=== PATIENT | female | born 1990 | race Caucasian/White ===

== ENCOUNTER 2018-05-25 17:03 | Emergency (ER) | payer MEDICAID, SELFPAY ==
[2018-05-25 17:04] VITALS: BP 115/72; PULSE 76; RESP 16; TEMP 36.9; O2SAT 97; BMI 26.6
--- NOTE | 2018-05-25 17:13 | RAD_ITS ---
STUDY: X-RAY - RIGHT FOOT CLINICAL: Female, 27 years old. Patient stepped on nail. TECHNIQUE: 3 view(s) of the foot. COMPARISON: None. FINDINGS: Normal talus, calcaneus, and tarsal bones. Normal visualized subtalar, talonavicular, calcaneocuboid, tarsal and tarsometatarsal articulations. Normal metatarsi. Normal metatarsophalangeal joint of the great toe. Normal tibial and fibular sesamoid bones. Normal interphalangeal joint of the great toe. Normal phalanges of the great toe. Normal second through fifth metatarsophalangeal joints. Normal interphalangeal joints and phalanges of the lesser toes. There is no demonstrated radio-opaque foreign body. There is soft tissue swelling. There is no demonstrated fracture. RAD/Foot min 3 Views IMPRESSION: Soft tissue swelling. No fracture or foreign body seen. Electronically Signed: García Hanna MD at 17:47 EDT , Service support ,
--- NOTE | 2018-05-25 18:29 | ED.VISSUMM ---
- ER Visit Summary Date of Service: 05/25/18 Chief Complaint: Puncture wound History of Present Illness: The patient is a 27 F puncture wound to my she stepped on a nail yesterday. Physical Examination: There was normal exam, there is a puncture wound forefoot. Slight swelling but no ecchymoses or erythema. Test Results: [] Emergency Department Course and Treatment: Patient will be treated with tetanus, antibiotics will be given Disposition: Discharge stable condition Impression: Puncture wound This note was generated with [employer] dictation software. It may contain incorrect words, spelling, and punctuation that were not noted in review of the chart prior to signing ED Disposition - Plan for ED Patient: Disposition: Home or Assisted Living Chief Complaint: Lower Extremity Injury Instructions: ED Wound Puncture Foot Prescriptions: Cephalexin [Keflex] 500 mg PO Q6 #20 cap Cephalexin [Keflex] 500 mg PO 4X/DAY 5 Days #20 capsule Referrals: Devyn Cavanaugh DO [Primary Care Provider] - 2 Days
--- NOTE | 2018-05-25 18:37 | ED.DCSUM_ITS ---
- ER Visit Summary Date of Service: 05/25/18 Chief Complaint: Puncture wound History of Present Illness: The patient is a 27 F puncture wound to my she stepped on a nail yesterday. Physical Examination: There was normal exam, there is a puncture wound forefoot. Slight swelling but no ecchymoses or erythema. Test Results: [] Emergency Department Course and Treatment: Patient will be treated with tetanus , antibiotics will be given Disposition: Discharge stable condition Impression: Puncture wound This note was generated with [employer] dictation software. It may contain incorrect words, spelling, and punctuation that were not noted in review of the chart prior to signing ED Disposition - Plan for ED Patient: Disposition: Home or Assisted Living Chief Complaint: Lower Extremity Injury Instructions: ED Wound Puncture Foot Prescriptions: Cephalexin [Keflex] 500 mg PO Q6 #20 cap Cephalexin [Keflex] 500 mg PO 4X/DAY 5 Days #20 capsule Referrals: Devyn Cavanaugh DO [Primary Care Provider] - 2 Days
[2018-05-25] MEDS: Diphth,Pertuss(Acell),Tet Vac 0.5 ML Vial IM (18:54)
== END 2018-05-25 19:10 | disposition home or self-care (01) ==
LOC: ED 18:39
PROVIDERS: Emergency Provider Emergency Medicine; Family Provider Student in an Organized Health Care Education/Training Program; PCP Student in an Organized Health Care Education/Training Program
DX: S91.331A Puncture wound without foreign body, right foot, initial encounter (principal); W45.0XXA Nail entering through skin, initial encounter; W22.8XXA Striking against or struck by other objects, initial encounter; Y93.9 Activity, unspecified; Y92.9 Unspecified place or not applicable; Y99.9 Unspecified external cause status; Z23 Encounter for immunization; K21.9 Gastro-esophageal reflux disease without esophagitis
CPT/HCPCS: 73630; 90471; 90715; 99282

== ENCOUNTER 2018-08-23 09:41 | Emergency (ER) | payer BC, MEDICAID, SELFPAY ==
[2018-08-23 09:42] VITALS: BP 130/78; PULSE 68; RESP 14; TEMP 36.8; O2SAT 99; BMI 27.6
[2018-08-23] MEDS: Ketorolac 30 MG/ML Syringe IV (10:18)
[2018-08-23] MEDS: Ondansetron 4 MG/2 ML Vial IV (10:18)
[2018-08-23] MEDS: 0.9% Normal Saline 1,000 ML 1000 ML IV (10:18)
[2018-08-23 10:28] LABS: Color, Urine Yellow (Yellow); Glucose, Dipstick Normal (Normal); Ketone-Dipstick Negative (Negative); Leukocyte Esterase-Dipstick Negative /ul (Negative); Mucous, Urine 0 SEEN /hpf (<or=2+); Nitrite-Dipstick Negative (Negative); Occult Blood-Urine Negative /ul (Negative); Protein-Dipstick Negative (Negative); Red Blood Cells-Urine 0 SEEN /hpf (0-5); Urine Bilirubin Dipstick Negative (Negative); Urine Clarity Sl. Cloudy (Clear); Urine Urobilinogen Normal (Normal); White Blood Cells 0 SEEN /hpf (0-5)
[2018-08-23 10:31] LABS: Absolute Lymphocyte Count 1.23 X10^3/ul (0.83-4.51); Absolute Neutrophil Count 2.4 X10^3/uL (2.0-7.7); Basophil# 0.01 X10^3/uL; Basophil% 0.2 % (0-1); Eosinophil# 0.08 X10^3/uL; Hematocrit 42.6 % (37-47); Hemoglobin 13.7 g/dl (12.0-15.0); Lymphocyte # 1.23 X10^3/ul (4.0); Lymphocyte % 30.4 % (19-41); Mean Corp Hgb Conc 32.2 g/gl (32-36); Mean Corpuscular Volume 90.3 fL (81-99); Mean Platelet Vol. 9.3 fl (6.2-12.0); Monocyte% 7.4 % (0-10); Neutrophil # 2.42 X10^3/uL (2.7-7.7); Platelet Count 278 K/mm3 (150-450); RBC Distribution Width CV 12.5 % (11.6-14.6); Red Blood Count 4.72 M/mm3 (4.2-5.4)
[2018-08-23 10:33] LABS: POSITIVE COUNT NO; POSITIVE DIFFERENTIAL NO; POSITIVE MORPHOLOGY NO
[2018-08-23 10:34] LABS: Bacteria 1+ /hpf (None Seen); Squamous Epithelial Cells - UA 0-5 SEEN /hpf (5-10)
[2018-08-23 10:46] LABS: Anion Gap 10 (5-15); BUN 20 mg/dL (7-18); BUN/Creat Ratio 21.1 RATIO (10-20); Calcium,Total 9.2 mg/dL (8.5-10.1); Chloride 104 mmol/L (98-107); Creatinine, Serum 0.95 mg/dL (0.55-1.02); EST Glomerular Filtration Rate 74 mL/min (>60); Est Glom Filt Rate - Afr Amer 89 mL/min (>60); Estimated Creatinine Clearance 77.92 ml/min; Glucose 89 mg/dL (74-106); Sodium Level 141 mmol/L (136-145)
--- NOTE | 2018-08-23 10:57 | ED.VISSUMM ---
- ER Visit Summary Date of Service: 08/23/18 Chief Complaint: Back pain History of Present Illness: The patient is a [address] Cavanaugh. She reports that she has lower back pain that began 4 days ago and is gradually gotten worse. She describes the pain as sharp. Is 10 out of 10 severity. Is worsened with bending or twisting. Is relieved by nothing. She denies any radiation to her legs. No numbness, tingling, or weakness in her legs. No problems with her bowels or her bladder. No groin numbness. 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 States that she has myalgias in her arms and her legs that began yesterday. She denies any fever or chills. She does however report that she has had night sweats. She states that she has a little cough. Is nonproductive. No chest pain or trouble breathing. She denies any abdominal pain. She has had nausea without vomiting. She had 2 episodes of diarrhea today. No blood in her stools or black tarry stools. Does report that she has a headache that stated 10 severity. It is an aching pain on the top of her head. She has not had a headache like this previously. Physical Examination: She denies any trauma. Vitals: Stable. Afebrile. General: A&O x 3. NAD. Cardiovascular exam: Regular rate and rhythm, no murmur, rub or gallop. Respiratory exam: Clear to auscultation bilaterally. No wheezes or stridor. Abdominal exam: Soft, nontender, nondistended, normal bowel sounds. No peritoneal signs. Back: Diffuse moderate tenderness to palpation over the lumbar spine and the paraspinous musculature in the lumbar region. No point tenderness. Negative straight leg bilaterally. 5/5 DF, PF, EHL bilaterally. Normal sensation to light touch throughout. Extremity: No clubbing, cyanosis, or edema. Test Results: CBC is remarkable for a white count of 4. Chem-7 is more for BUN of 20. UA is negative. test is negative. Emergency Department Course and Treatment: Patient had an IV placed. She given Toradol and Zofran IV. She is resting comfortably. I did discuss with her the possibility of viral meningitis. She refused a lumbar puncture. Treatment Plan: Patient will be discharged instructions to follow-up with Dr. Cavanaugh in 3-5 days if not improving. Symptomatic care. Push fluids. Alternate Tylenol and ibuprofen. Return to the emergency department for any worsening symptoms. Disposition: To home in improved and stable condition. Impression: 1. Back pain. 2. Viral syndrome. This note was generated with [employer] dictation software. It may contain incorrect words, spelling, and punctuation that were not noted in review of the chart prior to signing ED Disposition - Plan for ED Patient: Chief Complaint: General Illness Instructions: ED Neck Back Pain General, ED Viral Syndrome Prescriptions: Naproxen [Naprosyn] 500 mg PO BID #14 tablet Referrals: Devyn Cavanaugh DO [Primary Care Provider] - 3-5 Days if not improving
[2018-08-23 11:00] LABS: Pregnancy, Serum, hCG Quali. NEGATIVE Negative (0-9 Nonpreg)
[2018-08-23 11:45] VITALS: BP 111/75; PULSE 60; RESP 14; O2SAT 100
== END 2018-08-23 11:56 | disposition home or self-care (01) ==
PROVIDERS: Emergency Provider Emergency Medicine; Family Provider Student in an Organized Health Care Education/Training Program; PCP Student in an Organized Health Care Education/Training Program
DX: M54.9 Dorsalgia, unspecified (principal); B34.9 Viral infection, unspecified; R19.7 Diarrhea, unspecified; R05 Cough; R51 Headache; Z20.811 Contact with and (suspected) exposure to meningococcus
CPT/HCPCS: 80048; 81001; 84703; 85025; 96361; 96374; 96375; 99283; J7030; J2405

== ENCOUNTER 2018-10-25 14:11 | Emergency (ER) | payer BC, MEDICAID, SELFPAY ==
[2018-10-25 14:12] VITALS: BP 109/72; PULSE 66; RESP 12; TEMP 36.7; O2SAT 97; BMI 27.6
--- NOTE | 2018-10-25 14:37 | RAD_ITS ---
STUDY: X-RAY CHEST REASON FOR EXAM: Female, 28 years old. Intermittent chest pain and dizziness. TECHNIQUE: PA and lateral views of the chest. COMPARISON: None. FINDINGS: EKG electrodes are seen. The lungs are clear and expanded. There is no demonstrated pleural abnormality. Normal size heart. Normal mediastinum and mitch. Normal visualized pulmonary arteries. Normal visualized aortic arch and descending thoracic aorta. Normal visualized thoracic spine. Normal visualized ribs, clavicles, and shoulders. There is no demonstrated abnormality of the visualized soft tissue structures of the upper abdomen. RAD/Chest PA and Lateral IMPRESSION: Normal x-ray examination of the chest. Electronically Signed: Trever Segal MD at 15:06 EST Tel [phone], Service support ,
--- NOTE | 2018-10-25 14:37 | EKG12_ITS ---
Test Reason : CP Blood Pressure : / mmHG Vent. Rate : 061 BPM Atrial Rate : 061 BPM P-R Int : 134 ms QRS Dur : 090 ms QT Int : 414 ms P-R-T Axes : 021 013 027 degrees QTc Int : 416 ms Normal sinus rhythm with sinus arrhythmia Low voltage QRS (limb leads) Confirmed by YVONNE VELASCO, KAIT ([id number]), purchasing expeditor LOLA PATTERSON ([id number]) on 10/27/2018 4:18:46 PM Referred By: Confirmed By:KAIT RUSSELL MD
--- NOTE | 2018-10-25 14:39 | ED.VISSUMM ---
- ER Visit Summary Date of Service: 10/25/18 Chief Complaint: Chest pain History of Present Illness: The patient is a 28 F prior leg fracture with dayana that had to be removed. Patient complaining of 2-week history of intermittent chest pain and dizziness. States that the pressure at times is sharp. Intermittent. Worse with standing. Better supine. No shortness of breath. No leg pain or swelling. No history of DVT or PE. No family history of clotting disorder or cardiac disease at a young age. Patient had no significant recent travel, surgery or immobilization. No hemoptysis. No calf pain or swelling. No melena or vaginal bleeding. Denies any fever or cough. Currently she feels fine sitting down. Physical Examination: Well-appearing young female. Vital signs are stable and afebrile. Pulse ox 97% on room air no hypoxia. HEENT exam unremarkable. Neck nontender no lymphadenopathy. Lungs clear to auscultation bilaterally. Heart regular rhythm no murmur chest wall nontender. Abdomen soft nontender. Normal bowel sounds no peritoneal signs. Patient is moving all 4 extremities. Calves are nontender without edema or cords. Neurologically she is awake and alert with no focal motor deficits. Test Results: Patient will undergo cardiac workup. She has no risk factors for DVT or PE. CBC normal. White count of 4. Normal hemoglobin. Chemistries normal. Troponin normal. D-dimer normal. EKG sinus rhythm rate of 61 no acute signs of DE or ischemia nor dysrhythmia. Chest x-ray normal cardiac silhouette and mediastinum lung meza are unremarkable. Read both by myself and the radiologist. Emergency Department Course and Treatment: Repeat exam patient is doing well at 1535. Treatment Plan: Discharge home follow-up with primary care physician. Disposition: Discharge Impression: Acute atypical chest pain of uncertain etiology This note was generated with [employer] dictation software. It may contain incorrect words, spelling, and punctuation that were not noted in review of the chart prior to signing ED Disposition - Plan for ED Patient: Chief Complaint: Chest Other Referrals: Devyn Cavanaugh DO [Primary Care Provider] -
[2018-10-25 14:49] LABS: Absolute Lymphocyte Count 1.54 X10^3/ul (0.83-4.51); Absolute Neutrophil Count 2.9 X10^3/uL (2.0-7.7); Basophil# 0.01 X10^3/uL; Basophil% 0.2 % (0-1); Eosinophil# 0.03 X10^3/uL; Eosinophils% 0.6 % (0-5); Hematocrit 40.1 % (37-47); Lymphocyte # 1.54 X10^3/ul (4.0); Lymphocyte % 32.4 % (19-41); Mean Corp Hgb Conc 32.4 g/gl (32-36); Mean Corpuscular Hgb 28.4 pg (27.0-32.0); Mean Corpuscular Volume 87.7 fL (81-99); Mean Platelet Vol. 9.2 fl (6.2-12.0); Monocyte# 0.28 X10^3/uL; Monocyte% 5.9 % (0-10); Neutrophil # 2.89 X10^3/uL (2.7-7.7); Neutrophil % 60.9 % (47-70); Platelet Count 277 K/mm3 (150-450); RBC Distribution Width SD 38.3 fl (35.1-43.9); Red Blood Count 4.57 M/mm3 (4.2-5.4); White Blood Count 4.8 K/mm3 (4.4-11.0)
[2018-10-25 14:50] LABS: POSITIVE COUNT NO; POSITIVE DIFFERENTIAL NO; POSITIVE MORPHOLOGY NO
[2018-10-25 15:00] LABS: Anion Gap 5 (5-15); BUN 13 mg/dL (7-18); BUN/Creat Ratio 14.3 RATIO (10-20); Calcium,Total 8.9 mg/dL (8.5-10.1); Chloride 105 mmol/L (98-107); Creatinine, Serum 0.91 mg/dL (0.55-1.02); EST Glomerular Filtration Rate 77 mL/min (>60); Est Glom Filt Rate - Afr Amer 93 mL/min (>60); Estimated Creatinine Clearance 81.34 ml/min; Glucose 101 mg/dL (74-106); Potassium 3.7 mmol/L (3.5-5.1); Sodium Level 138 mmol/L (136-145)
[2018-10-25 15:10] VITALS: O2SAT 98
[2018-10-25 15:38] LABS: D-Dimer Quantitative (DVT/PE) < 0.27 FEU/ug/m (0.27-0.49)
--- NOTE | 2018-10-25 15:46 | ED.DEP ---
ED Disposition - Plan for ED Patient: Disposition: Home or Assisted Living Chief Complaint: Chest Other Instructions: ED Chest Pain Atypical Unkn Cause Referrals: Devyn Cavanaugh DO [Primary Care Provider] - 3-5 Days if not improving Additional Instructions: All your lab work, EKG and chest x-ray were normal today. If not improving follow-up your primary care physician. Motrin for pain.
[2018-10-25 16:01] VITALS: BP 110/70; PULSE 60; RESP 16; O2SAT 98
--- OUTSIDE RECORDS SUMMARY | 2018-12-07 13:15 | XMS RPT_ITS ---
:1990 Author Organization OHIP Care Team Providers Name Role Phone DEVYN LUIS Attending Unavailable DEVYN LUIS Referring Unavailable DEVYN LUIS Referring Unavailable Devyn Luis Primary Care Unavailable Ricky Blanton Attending Unavailable Devyn Luis Primary Care Unavailable Rishabh Rondon Attending Unavailable Devyn Luis Primary Care Unavailable Winston Chairez Attending Unavailable PROBLEMS PROBLEMS DATE TYPE CONDITION / CODE ATTENDING STATUS SOURCE 2018 Active Encounter for NA Active [facility] general adult [facility] medical Repository examination without abnormal findings / Z00.00(ICD-10) 2018 Active Vitamin D NA Active [facility] deficiency, [facility] unspecified / Repository E55.9(ICD-10) PROCEDURES PROCEDURES No Procedure Records FoundRESULTS RESULTS 12 LEAD ELECTROCARDIOGRAM Observed: 10/29/2018 Status: F Source: [place] 9:27 AM [facility] REPOSITORY [facility] Cardiovascular Services [address] [place] [address] 12 Lead EKG 10/25/18 1420 MR#: [id number] Acct: [id number] Name: ANGELIKA SHAHID I Rep #: [id number] : 1990 28 From: Ricky Russell MD Attending Dr: Status: [facility] ER Ordering Dr: Winston Chairez MD Date: 10/25/18 Location: ED Sex: F C Admitted: Test Reason : CP Blood Pressure : / mmHG Vent. Rate : 061 BPM Atrial Rate : 061 BPM P-R Int : 134 ms QRS Dur : 090 ms QT Int : 414 ms P-R-T Axes : 021 013 027 degrees QTc Int : 416 ms Normal sinus rhythm with sinus arrhythmia Low voltage QRS (limb leads) Confirmed by YVONNE VELASCO, RICKY ([id number]), scientific publications editor LOLA PATTERSON ([id number]) on 10/27/2018 4:18:46 PM Referred By: Confirmed By:RICKY RUSSELL MD 10/27/18 1618 Date Ricky Russell MD CC: Winston Chairez MD; Devyn Gilliland DO Signed DISCHARGE INSTRUCTION Observed: 10/25/2018 Status: F Source: [place] 5:03 PM [facility] REPOSITORY [facility] Medical Records Department [address] [place] [id number] Discharge Instruction 10/25/18 1546 MR#: [id number] Acct: [id number] Name: ANGELIKA SHAHID I Rep #: [id number] : 1990 28 From: Winston Chairez MD PCP: Devyn Gilliland DO Status: DEP ER ED Disposition - Plan for ED Patient: Disposition: Home or Assisted Living Chief Complaint: Chest Other Instructions: ED Chest Pain Atypical Unkn Cause Referrals: Devyn Luis DO [Primary Care Provider] - 3-5 Days if not improving Additional Instructions: All your lab work, EKG and chest x-ray were normal today. If not improving follow-up your primary care physician. Motrin for pain. What to do if you have Problems For any increased pain, shortness of breath, bleeding, nausea or vomiting, chest pain, or any unexpected problems, contact your Primary Care Provider. Call [email or web address] ([phone]) or report to the closest Emergency Room. Call 911 if necessary. 10/25/18 1703 <Electronically signed by Winston Chairez MD> Date Winston Chairez MD Cosigner Signature (If Indicated): Date CC: Devyn Gilliland DO EMERGENCY DEPARTMENT Observed: 10/25/2018 Status: F Source: [place] SUMMARY 5:03 PM [facility] REPOSITORY [facility] Medical Records Department [address] [place] [address] Emergency Department Summary 10/25/18 1439 MR#: [id number] Acct: [id number] Name: ANGELIKA SHAHID I Rep #: [id number] : 1990 28 From: Winston Chairez MD PCP: Devyn Gilliland DO Status: DEP ER - ER Visit Summary Date of Service: 10/25/18 Chief Complaint: Chest pain History of Present Illness: The patient is a 28 F prior leg fracture with miky that had to be removed. Patient complaining of 2-week history of intermittent chest pain and dizziness. States that the pressure at times is sharp. Intermittent. Worse with standing. Better supine. No shortness of breath. No leg pain or swelling. No history of DVT or PE. No family history of clotting disorder or cardiac disease at a young age. Patient had no significant recent travel, surgery or immobilization. No hemoptysis. No calf pain or swelling. No melena or vaginal bleeding. Denies any fever or cough. Currently she feels fine sitting down. Physical Examination: Well-appearing young female. Vital signs are stable and afebrile. Pulse ox 97% on room air no hypoxia. HEENT exam unremarkable. Neck nontender no lymphadenopathy. Lungs clear to auscultation bilaterally. Heart regular rhythm no murmur chest wall nontender. Abdomen soft nontender. Normal bowel sounds no peritoneal signs. Patient is moving all 4 extremities. Calves are nontender without edema or cords. Neurologically she is awake and alert with no focal motor deficits. Test Results: Patient will undergo cardiac workup. She has no risk factors for DVT or PE. CBC normal. White count of 4. Normal hemoglobin. Chemistries normal. Troponin normal. D-dimer normal. EKG sinus rhythm rate of 61 no acute signs of AK or ischemia nor dysrhythmia. Chest x-ray normal cardiac silhouette and mediastinum lung meza are unremarkable. Read both by myself and the radiologist. Emergency Department Course and Treatment: Repeat exam patient is doing well at 1535. Treatment Plan: Discharge home follow-up with primary care physician. Disposition: Discharge Impression: Acute atypical chest pain of uncertain etiology This note was generated with [employer] dictation software. It may contain incorrect words, spelling, and punctuation that were not noted in review of the chart prior to signing ED Disposition - Plan for ED Patient: Chief Complaint: Chest Other Referrals: Devyn Luis, [Primary Care Provider] - What to do if you have Problems For any increased pain, shortness of breath, bleeding, nausea or vomiting, chest pain, or any unexpected problems, contact your Primary Care Provider. Call [facility] ([phone]) or report to the closest Emergency Room. Call 911 if necessary. 10/25/18 1703 <Electronically signed by Winston Chairez MD> Date Winston Chairez MD Cosigner Signature (If Indicated): Date CC: Devyn Gilliland DO D-DIMER QUANTITATIVE Collected: 10/25/2018 Status: F Source: [place] (DVT/PE) 2:54 PM [facility] REPOSITORY TYPE CODE TESTS RESULT OUT OF RANGE REFERENCE UNITS LAB L300.8000 0.27-0.49 FEU/ug/m Low D-DIMER < 0.27 QUANT Result Comment: NORMAL D-Dimer level (<0.50) indicates no DVT or PE. Performed By: #### L300.8000 #### [facility] [address] [place], [address] CHEST PA AND LATERAL Observed: 10/25/2018 Status: F Source: [place] 2:38 PM [facility] REPOSITORY [facility] Imaging Services [address] [place] [address] Chest PA and Lateral MR#: [id number] Acct: [id number] Name: ANGELIKA SHAHID I Rep #: [id number] : 1990 F 28 From: Trever Segal MD PCP: Devyn Gilliland DO Status: REG ER Study: Chest PA and Lateral Date of Exam: 10/25/18 Exam# [id number] Ordering Dr: Winston Chairez MD STUDY: X-RAY CHEST REASON FOR EXAM: Female, 28 years old. Intermittent chest pain and dizziness. TECHNIQUE: PA and lateral views of the chest. COMPARISON: None. FINDINGS: EKG electrodes are seen. The lungs are clear and expanded. There is no demonstrated pleural abnormality. Normal size heart. Normal mediastinum and mitch. Normal visualized pulmonary arteries. Normal visualized aortic arch and descending thoracic aorta. Normal visualized thoracic spine. Normal visualized ribs, clavicles, and shoulders. There is no demonstrated abnormality of the visualized soft tissue structures of the upper abdomen. RAD/Chest PA and Lateral IMPRESSION: Normal x-ray examination of the chest. Electronically Signed: Trever Segal MD at 15:06 EST Tel [phone], Service support , CC: Winston Chairez MD; Devyn Gilliland DO [employer] Systems Adminstrator: Signed CBC W/DIFF, AUTOMATED Collected: 10/25/2018 Status: F Source: [place] 2:26 PM [facility] REPOSITORY TYPE CODE TESTS RESULT OUT OF RANGE REFERENCE UNITS LAB L100.1000 4.4-11.0 K/mm3 Normal WBC 4.8 LAB L100.1200 4.2-5.4 M/mm3 Normal RBC 4.57 LAB L100.1300 12.0-15.0 g/dl Normal HGB 13.0 LAB L100.1400 37-47 % Normal HCT 40.1 LAB L100.1500 81-99 fL Normal MCV 87.7 LAB L100.1600 27.0-32.0 pg Normal MCH 28.4 LAB L100.1700 32-36 g/gl Normal MCHC 32.4 LAB L100.1810 11.6-14.6 % Normal RDW CV 12.0 LAB L100.1820 35.1-43.9 fl Normal RDW SD 38.3 LAB L100.1900 150-450 K/mm3 Normal PLT 277 LAB L100.2000 6.2-12.0 fl Normal MPV 9.2 LAB L100.2100 47-70 % Normal NEUT% 60.9 LAB L100.2200 19-41 % Normal LY% 32.4 LAB L100.2300 0-10 % Normal MONO% 5.9 LAB L100.2400 0-5 % Normal EO% 0.6 LAB L100.2500 0-1 % Normal BASO% 0.2 LAB L100.2550 0.0-0.9 % Normal IM GRAN % 0.000 Result Comment: IG% - Immature Granulocytes (promyelocytes, myelocytes and metamyelocytes) > 1% indicates that a LEFT SHIFT is Present. LAB L100.2620 2.0-7.7 X10 3/uL Normal Absolute Neut 2.9 LAB L100.2720 0.83-4.51 X10 3/ul Normal Absolute Lymph 1.54 Performed By: #### L100.0100 #### [facility] [address] [place], [address] BASIC METABOLIC Collected: 10/25/2018 Status: F Source: [place] PROFILE (BMP) 2:26 PM [facility] REPOSITORY TYPE CODE TESTS RESULT OUT OF RANGE REFERENCE UNITS LAB L501.0100 74-106 mg/dL Normal GLU 101 Result Comment: Fasting Glucose result from 100 to 125 mg/dL suggests IMPAIRED HOMEOSTASIS per A.D.A. criteria. Please note revised GLUCOSE reference range effective 2018. LAB L501.1000 7-18 mg/dL Normal BUN 13 LAB L501.1100 0.55-1.02 mg/dL Normal CREAT,SERUM 0.91 Result Comment: The validity of the calculated GFR AND GFRAA in patients over 70 years has not been determined. Clinical correlation is essential. LAB L501.1110 >60 mL/min Normal EST GFR 77 Result Comment: Non- GFR Calc LAB L501.1115 >60 mL/min Normal EST GFR - AA 93 Result Comment: GFR Calc LAB L501.1255 ml/min Normal Estimated CRCL 81.34 LAB L501.1300 10-20 RATIO Normal BUN/CRE 14.3 LAB L501.2200 8.5-10 mg/dL Normal .1 CA 8.9 LAB L501.5300 136-14 mmol/L Normal 5 NA 138 LAB L501.5600 3.5-5. mmol/L Normal 1 K 3.7 LAB L501.5900 98-107 mmol/L Normal CL 105 LAB L501.6100 21.0-3 mmol/L Normal 2.0 CO2 28.0 LAB L501.6200 5-15 Normal GAP 5 Performed By: #### L500.2500, L501.4010 #### [facility] [address] [place], [address] TROPONIN-I Collected: 10/25/2018 Status: F Source: [place] 2:26 PM [facility] REPOSITORY TYPE CODE TESTS RESULT OUT OF RANGE REFERENCE UNITS LAB L501.4010 <0.045 ng/mL Normal < 0.015 TROPONIN-I Result Comment: TROPONIN-I EXPECTED VALUES <0.045 Negative 0.045 - 0.590 Consistent with Cardiac Damage > OR = 0.600 Critical Value Not every elevated troponin is indicative of AK. These values should be used with clinical judgement in examining the patient's clinical picture for diagnosis. To establish a diagnosis of AK versus myocardial injury, there must be a demonstrated rise and/or fall in the troponin values, in addition to ischemic symptoms, EKG changes, new regional wall motion abnormality, and/or angiographical evidence. PLEASE NOTE: REFERENCE RANGES EDITED 18 Performed By: #### L500.2500, L501.4010 #### [facility] [address] [place], [address] PROGRESS Observed: 10/19/2018 Status: COMPLETED Source: [place] 1:06 PM [facility] REPOSITORY HNO ID: [id number] Author: Yomi Gomez Service: (none) Author Type: Nurse Practitioner Type: Progress Notes Filed: 10/19/2018 1:27 PM Note Text: Subjective HPI HPI Angelika Shahid is a 28 year old female who presents today for CC of sinus pressure. This started 3 weeks ago. Has tried otc medication. Symptoms are worsened by nothing. Risk factors chronic/intermittent. Denies possibility of being . Nonsmoker. .Patient presents with: head congestion and pressure and bilateral ear pain: x 3 weeks PAST MEDICAL HISTORY Diagnosis Date - Endometriosis 2016 stage 3 - Other and unspecified ovarian cyst Ovarian cyst - PMH - PAST MEDICAL HISTORY OF ELEVATED PTT PAST SURGICAL HISTORY Procedure Laterality Date - DELIVERY ONLY 10/2010 - INSERTION OF IUD 02/05/2011 spontaneously expelled 04/21/11 - IUD REMOVAL ([employer])_*FL 02/16/09 mirena - PAST SURGICAL HISTORY OF 06/29/2007 RIGHT LEG MIKY INSERTION - PAST SURGICAL HISTORY OF 03/2010 WISDOM TEETH - PAST SURGICAL HISTORY OF removal miky right leg. - REMOVAL OF TONSILS,<12 Y/O Tonsillectomy ALLERGIES Soap [Other]; Food Extracts; Morphine; Garvin -This section reviewed with patient, no changes MEDICATIONS fluticasone (FLONASE) 50 mcg/actuation nasal spray Use 2 Sprays in each nostril once daily. Rinse mouth after use. cetirizine-pseudoephedrine (ZYRTEC-D) 5-120 mg per tablet Take 1 tablet by mouth twice daily. -This section reviewed with patient, no changes FAMILY HISTORY Problem Relation Age of Onset - Breast Cancer Maternal Aunt - Breast Cancer Mother - Heart Father 55 mild AK - Heart Maternal Uncle - Alcohol/Drug Maternal Grandfather ETOH - Alcohol/Drug Paternal Grandfather ETOH - Alcohol/Drug Paternal Grandmother ETOH - Diabetes Maternal Aunt - Diabetes Maternal Aunt - COPD Father - Stroke Paternal Uncle - Hypertension Father - Multiple Sclerosis Maternal Aunt Social History Substance Use Topics - Smoking status: Former Smoker Years: 1.00 Types: Cigarettes Quit date: 05/05/2006 - Smokeless tobacco: Never Used - Alcohol use No Review of Systems Constitutional: Negative for chills, fever and weight loss. HENT: Positive for congestion and sore throat. Negative for ear pain and nosebleeds. Respiratory: Positive for cough. Negative for shortness of breath and wheezing. Musculoskeletal: Negative for neck pain. Objective Blood pressure 110/74, pulse 86, temperature 36.4 ?C (97.5 ?F), temperature source Tympanic, resp. rate 18, weight 74.5 kg (164 lb 3.2 oz), SpO2 98 %. Physical Exam Constitutional: She is oriented to person, place, and time and well-developed, well-nourished, and in no distress. Non-toxic appearance. She does not have a sickly appearance. No distress. HENT: Head: Normocephalic and atraumatic. Right Ear: Hearing, external ear and ear canal normal. Tympanic membrane is bulging (clear fluid behind). Tympanic membrane is not perforated and not erythematous. Left Ear: Hearing, external ear and ear canal normal. Tympanic membrane is bulging (clear fluid behind). Tympanic membrane is not perforated and not erythematous. Nose: Right sinus exhibits maxillary sinus tenderness and frontal sinus tenderness. Left sinus exhibits maxillary sinus tenderness and frontal sinus tenderness. Mouth/Throat: Uvula is midline, oropharynx is clear and moist and mucous membranes are normal. Eyes: Pupils are equal, round, and reactive to light. Conjunctivae and lids are normal. Right eye exhibits no discharge. Left eye exhibits no discharge. No scleral icterus. Neck: Trachea normal and normal range of motion. Neck supple. Cardiovascular: Normal rate, regular rhythm and normal heart sounds. Pulmonary/Chest: Effort normal and breath sounds normal. Lymphadenopathy: She has no cervical adenopathy. Neurological: She is alert and oriented to person, place, and time. Skin: No rash noted. She is not diaphoretic. ASSESSMENT/PLAN: 1. Bacterial sinusitis - ICD9: 473.9, 041.9, ICD10: J32.9, B96.89 - Will begin treatment with Doxycline - Supportive care with plenty of fluids, rest, and analgesia prn. - Follow up in 3-5 days if symptoms persist or worsen. -augmentin has failed few times, will start with doxy - DOXYCYCLINE MONOHYDRATE 100 MG TABLET Prescription instructions reviewed with patient as applicable. Patient advised if symptoms do not improve or if symptoms worsen sooner, to contact the office for further evaluation by their primary care physician. Potential red flag symptoms discussed with the patient. Reviewed appropriate action plan to take if red flag symptoms occur. Patient agreeable to treatment plan. Yomi Gomez APRN.CNP CNOV Observed: 10/19/2018 Status: COMPLETED Source: [place] 1:00 PM [facility] REPOSITORY Office Visit (W[facility]) ANGELIKA SHAHID I ([id number]) 1990 F Date Time Provider Department 10/19/18 1:00 PM YOMI GOMEZ (CLIF) [facility] During your visit today, we recorded the following information about you: Temperature Pulse Respiration Blood pressure 97.5 degrees 86/minute 18/minute 110/74 Weight 74.5 kg Yomi Gomez APRN.CNP 10/19/2018 1:27 PM Signed Subjective HPI HPI Angelika Brittaney Zehra is a 28 year old female who presents today for CC of sinus pressure. This started 3 weeks ago. Has tried otc medication. Symptoms are worsened by nothing. Risk factors chronic/intermittent. Denies possibility of being . Nonsmoker. .Patient presents with: head congestion and pressure and bilateral ear pain: x 3 weeks PAST MEDICAL HISTORY Diagnosis Date - Endometriosis 2016 stage 3 - Other and unspecified ovarian cyst Ovarian cyst - PMH - PAST MEDICAL HISTORY OF ELEVATED PTT PAST SURGICAL HISTORY Procedure Laterality Date - DELIVERY ONLY 10/2010 - INSERTION OF IUD 02/05/2011 spontaneously expelled 04/21/11 - IUD REMOVAL ([employer] DE[employer])_*FL 02/16/09 mirena - PAST SURGICAL HISTORY OF 06/29/2007 RIGHT LEG MIKY INSERTION - PAST SURGICAL HISTORY OF 03/2010 WISDOM TEETH - PAST SURGICAL HISTORY OF removal miky right leg. - REMOVAL OF TONSILS,<12 Y/O Tonsillectomy ALLERGIES Soap [Other]; Food Extracts; Morphine; Garvin -This section reviewed with patient, no changes MEDICATIONS fluticasone (FLONASE) 50 mcg/actuation nasal spray Use 2 Sprays in each nostril once daily. Rinse mouth after use. cetirizine-pseudoephedrine (ZYRTEC-D) 5-120 mg per tablet Take 1 tablet by mouth twice daily. -This section reviewed with patient, no changes FAMILY HISTORY Problem Relation Age of Onset - Breast Cancer Maternal Aunt - Breast Cancer Mother - Heart Father 55 mild AK - Heart Maternal Uncle - Alcohol/Drug Maternal Grandfather ETOH - Alcohol/Drug Paternal Grandfather ETOH - Alcohol/Drug Paternal Grandmother ETOH - Diabetes Maternal Aunt - Diabetes Maternal Aunt - COPD Father - Stroke Paternal Uncle - Hypertension Father - Multiple Sclerosis Maternal Aunt Social History Substance Use Topics - Smoking status: Former Smoker Years: 1.00 Types: Cigarettes Quit date: 05/05/2006 - Smokeless tobacco: Never Used - Alcohol use No Review of Systems Constitutional: Negative for chills, fever and weight loss. HENT: Positive for congestion and sore throat. Negative for ear pain and nosebleeds. Respiratory: Positive for cough. Negative for shortness of breath and wheezing. Musculoskeletal: Negative for neck pain. Objective Blood pressure 110/74, pulse 86, temperature 36.4 ?C (97.5 ?F), temperature source Tympanic, resp. rate 18, weight 74.5 kg (164 lb 3.2 oz), SpO2 98 %. Physical Exam Constitutional: She is oriented to person, place, and time and well-developed, well-nourished, and in no distress. Non-toxic appearance. She does not have a sickly appearance. No distress. HENT: Head: Normocephalic and atraumatic. Right Ear: Hearing, external ear and ear canal normal. Tympanic membrane is bulging (clear fluid behind). Tympanic membrane is not perforated and not erythematous. Left Ear: Hearing, external ear and ear canal normal. Tympanic membrane is bulging (clear fluid behind). Tympanic membrane is not perforated and not erythematous. Nose: Right sinus exhibits maxillary sinus tenderness and frontal sinus tenderness. Left sinus exhibits maxillary sinus tenderness and frontal sinus tenderness. Mouth/Throat: Uvula is midline, oropharynx is clear and moist and mucous membranes are normal. Eyes: Pupils are equal, round, and reactive to light. Conjunctivae and lids are normal. Right eye exhibits no discharge. Left eye exhibits no discharge. No scleral icterus. Neck: Trachea normal and normal range of motion. Neck supple. Cardiovascular: Normal rate, regular rhythm and normal heart sounds. Pulmonary/Chest: Effort normal and breath sounds normal. Lymphadenopathy: She has no cervical adenopathy. Neurological: She is alert and oriented to person, place, and time. Skin: No rash noted. She is not diaphoretic. ASSESSMENT/PLAN: 1. Bacterial sinusitis - ICD9: 473.9, 041.9, ICD10: J32.9, B96.89 - Will begin treatment with Doxycline - Supportive care with plenty of fluids, rest, and analgesia prn. - Follow up in 3-5 days if symptoms persist or worsen. -augmentin has failed few times, will start with doxy - DOXYCYCLINE MONOHYDRATE 100 MG TABLET Prescription instructions reviewed with patient as applicable. Patient advised if symptoms do not improve or if symptoms worsen sooner, to contact the office for further evaluation by their primary care physician. Potential red flag symptoms discussed with the patient. Reviewed appropriate action plan to take if red flag symptoms occur. Patient agreeable to treatment plan. Yomi Gomez APRN.CLIF Gomez APRN.CLIF 10/19/2018 1:24 PM Signed SINUSITIS: You have sinusitis, an infection of the sinus cavities around the nose. This infection usually follows a respiratory illness; it can also be related to allergies, changes in atmospheric pressure (flying, diving), or anything that blocks nasal drainage. Symptoms include: headache, facial pain, a thick nasal discharge, congestion, and cough. The treatment includes antibiotic therapy, increasing oral fluids, and pain medication if needed. Nose spray decongestants (Afrin, Fermin- Synephrine) and oral decongestants may be needed to reduce congestion and drainage. Rarely the sinus must be irrigated to remove the infected material. Sinusitis can lead to serious complications by spreading to other areas such as the eye or brain. Please call your doctor or return here right away if you have any of the following more serious symptoms: - Unusual swelling around the eye or trouble seeing. - Increasing pain, severe headache, or toothache. - Nausea, vomiting, or unusual drowsiness. Referring Provider: SELF [200] Allergies As of Date: 10/19/2018 Noted Allergy Reaction soap [Other] 07/31/2005 2 - Rash Comments: Tide laundry deterg. especially per pt. FOOD EXTRACTS 04/26/2014 8 - GI Upset 14 - Other: See Comments Comments: ANCHOVIES Causes fevers, I can't move MORPHINE 01/08/2016 1 - Mental Status Change ORANGE 01/23/2010 4 - Hives Comments: Pt has a reaction to oranges if consumed in large amounts. Date Reviewed: 10/19/2018 Reviewed by: Yomi Gomez - Fully Assessed Reason for Visit: head congestion and pressure and bilateral ear pain [Other] Cmt: x 3 weeks Primary Visit Diagnosis:Bacterial sinusitis [J32.9, B96.89] Order(s):doxycycline monohydrate 100 mg tabletTake 1 tablet by mouth twice daily for 10 days.Disp: 20 tabletRfl: 0 Prescriptions as of 10/19/2018 Sig: FLUTICASONE 50 MCG/ACTUATION * Use 2 Sprays in each nostril * CETIRIZINE 5 MG-PSEUDOEPHEDRI* Take 1 tablet by mouth twice * DOXYCYCLINE MONOHYDRATE 100 M* Take 1 tablet by mouth twice * Problem List As Of Date 10/19/2018 Noted Resolved Supervision of Normal First [Z34.00] INVALID FOR*01/23/2010 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 This infection usually follows a respiratory illness; it can also be related to allergies, changes in atmospheric pressure (flying, diving), or anything that blocks nasal drainage. Symptoms include: headache, facial pain, a thick nasal discharge, congestion, and cough. The treatment includes antibiotic therapy, increasing oral fluids, and pain medication if needed. Nose spray decongestants (Afrin, Fermin-Synephrine) and oral decongestants may be needed to reduce congestion and drainage. Rarely the sinus must be irrigated to remove the infected material. Sinusitis can lead to serious complications by spreading to other areas such as the eye or brain. Please call your doctor or return here right away if you have any of the following more serious symptoms: - Unusual swelling around the eye or trouble seeing. - Increasing pain, severe headache, or toothache. - Nausea, vomiting, or unusual drowsiness. Prescriptions ordered this encounter Disp Refills Start End DOXYCYCLINE MONOHYDRATE 100 MG TABLET 20 t* 0 10/19/2018 10/29/2018 Cmt: May transfer to [facility] if less expensive. Route: ORAL Sig: Take 1 tablet by mouth twice daily for 10 days. Encounter Status:Closed by YOMI GOMEZ CNP on 10/19/18 EMERGENCY DEPARTMENT Observed: 08/23/2018 Status: F Source: [place] SUMMARY 5:26 PM [facility] REPOSITORY [facility] Medical Records Department [address] [place] [address] Emergency Department Summary 08/23/18 1057 MR#: [id number] Acct: [id number] Name: ANGELIKA SHAHID I Rep #: [id number] : 1990 28 From: Rishabh Rondon MD PCP: Devyn Gilliland DO Status: DEP ER - ER Visit Summary Date of Service: 08/23/18 Chief Complaint: Back pain History of Present Illness: The patient is a [address] Luis. She reports that she has lower back pain that began 4 days ago and is gradually gotten worse. She describes the pain as sharp. Is 10 out of 10 severity. Is worsened with bending or twisting. Is relieved by nothing. She denies any radiation to her legs. No numbness, tingling, or weakness in her legs. No problems with her bowels or her bladder. No groin numbness. 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 States that she has myalgias in her arms and her legs that began yesterday. She denies any fever or chills. She does however report that she has had night sweats. She states that she has a little cough. Is nonproductive. No chest pain or trouble breathing. She denies any abdominal pain. She has had nausea without vomiting. She had 2 episodes of diarrhea today. No blood in her stools or black tarry stools. Does report that she has a headache that stated 10 severity. It is an aching pain on the top of her head. She has not had a headache like this previously. Physical Examination: She denies any trauma. Vitals: Stable. Afebrile. General: A AND O x 3. NAD. Cardiovascular exam: Regular rate and rhythm, no murmur, rub or gallop. Respiratory exam: Clear to auscultation bilaterally. No wheezes or stridor. Abdominal exam: Soft, nontender, nondistended, normal bowel sounds. No peritoneal signs. Back: Diffuse moderate tenderness to palpation over the lumbar spine and the paraspinous musculature in the lumbar region. No point tenderness. Negative straight leg bilaterally. 5/5 DF, PF, EHL bilaterally. Normal sensation to light touch throughout. Extremity: No clubbing, cyanosis, or edema. Test Results: CBC is remarkable for a white count of 4. Chem- 7 is more for BUN of 20. UA is negative. test is negative. Emergency Department Course and Treatment: Patient had an IV placed. She given Toradol and Zofran IV. She is resting comfortably. I did discuss with her the possibility of viral meningitis. She refused a lumbar puncture. Treatment Plan: Patient will be discharged instructions to follow-up with Dr. Luis in 3-5 days if not improving. Symptomatic care. Push fluids. Alternate Tylenol and ibuprofen. Return to the emergency department for any worsening symptoms. Disposition: To home in improved and stable condition. Impression: 1. Back pain. 2. Viral syndrome. This note was generated with [employer] Productsation software. It may contain incorrect words, spelling, and punctuation that were not noted in review of the chart prior to signing ED Disposition - Plan for ED Patient: Chief Complaint: General Illness Instructions: ED Neck Back Pain General, ED Viral Syndrome Prescriptions: Naproxen [Naprosyn] 500 mg PO BID #14 tablet Referrals: Devyn Luis, [Primary Care Provider] - 3-5 Days if not improving What to do if you have Problems For any increased pain, shortness of breath, bleeding, nausea or vomiting, chest pain, or any unexpected problems, contact your Primary Care Provider. Call [facility] ([phone]) or report to the closest Emergency Room. Call 911 if necessary. 08/23/18 1726 <Electronically signed by Rishabh Rondon MD> Date Rishabh Rondon MD Cosigner Signature (If Indicated): Date CC: Devyn Gilliland DO URINALYSIS, COMPLETE Collected: 08/23/2018 Status: F Source: [place] 10:20 AM [facility] REPOSITORY Order Comment: How was Urine Obtained? CLEAN CATCH TYPE CODE TESTS RESULT OUT OF RANGE REFERENCE UNITS LAB L400.3000 Yellow COLOR Normal Yellow LAB L400.3050 Clear Normal CLARITY Sl. Cloudy LAB L400.3200 Normal mg/dl Normal GLUCOSE, UR Normal LAB L400.3300 Negative mg/dL Normal BILIRUBIN URINE Negative LAB L400.3400 Negative mg/dl Normal KETONE UR Negative LAB L400.3465 1.002-1.030 Normal SP.GR. DIPSTX 1.020 LAB L400.3550 5.0 - 8.0 pH UR Normal 7.0 LAB L400.3600 Negative mg/dl PROT Normal DIPSTX Negative LAB L400.3700 Normal mg/dl Normal UROBILI Normal LAB L400.3750 Negative Normal NITRITE UR Negative LAB L400.3780 Negative /ul Normal OCCULT BLOOD-UR Negative LAB L400.3800 Negative /ul LEUK Normal ESTERASE Negative LAB L400.4050 0-5 /hpf WBC 0 Normal SEEN LAB L400.4100 0-5 /hpf 0 Normal RBC-UA SEEN LAB L400.4150 5-10 /hpf SQUAM Normal EPI 0-5 SEEN LAB L400.4300 None Seen /hpf 1+ Normal BACTERIA LAB L400.4350 <or=2+ /hpf 0 Normal MUCUS, URINE SEEN Performed By: #### L400.0001 #### [facility] [address] [place], [address] CBC W/DIFF, AUTOMATED Collected: 08/23/2018 Status: F Source: [place] 10:20 AM [facility] REPOSITORY TYPE CODE TESTS RESULT OUT OF RANGE REFERENCE UNITS LAB L100.1000 4.4-11.0 K/mm3 Low WBC 4.0 LAB L100.1200 4.2-5.4 M/mm3 Normal RBC 4.72 LAB L100.1300 12.0-15.0 g/dl Normal HGB 13.7 LAB L100.1400 37-47 % Normal HCT 42.6 LAB L100.1500 81-99 fL Normal MCV 90.3 LAB L100.1600 27.0-32.0 pg Normal MCH 29.0 LAB L100.1700 32-36 g/gl Normal MCHC 32.2 LAB L100.1810 11.6-14.6 % Normal RDW CV 12.5 LAB L100.1820 35.1-43.9 fl Normal RDW SD 41.0 LAB L100.1900 150-450 K/mm3 Normal PLT 278 LAB L100.2000 6.2-12.0 fl Normal MPV 9.3 LAB L100.2100 47-70 % Normal NEUT% 60.0 LAB L100.2200 19-41 % Normal LY% 30.4 LAB L100.2300 0-10 % Normal MONO% 7.4 LAB L100.2400 0-5 % Normal EO% 2.0 LAB L100.2500 0-1 % Normal BASO% 0.2 LAB L100.2550 0.0-0.9 % Normal IM GRAN % 0.000 Result Comment: IG% - Immature Granulocytes (promyelocytes, myelocytes and metamyelocytes) > 1% indicates that a LEFT SHIFT is Present. LAB L100.2620 2.0-7.7 X10 3/uL Normal Absolute Neut 2.4 LAB L100.2720 0.83-4.51 X10 3/ul Normal Absolute Lymph 1.23 Performed By: #### L100.0100 #### [facility] [address] [facility] [address] [facility] [place], [place], [address] BASIC METABOLIC Collected: 08/23/2018 Status: F Source: [place] PROFILE (BMP) 10:20 AM [facility] REPOSITORY TYPE CODE TESTS RESULT OUT OF RANGE REFERENCE UNITS LAB L501.0100 74-106 mg/dL Normal GLU 89 Result Comment: Please note revised GLUCOSE reference range effective 2018. LAB L501.1000 7-18 mg/dL High BUN 20 LAB L501.1100 0.55-1.02 mg/dL Normal CREAT,SERUM 0.95 Result Comment: The validity of the calculated GFR AND GFRAA in patients over 70 years has not been determined. Clinical correlation is essential. LAB L501.1110 >60 mL/min Normal EST GFR 74 Result Comment: Non- GFR Calc LAB L501.1115 >60 mL/min Normal EST GFR - AA 89 Result Comment: GFR Calc LAB L501.1255 ml/min Normal Estimated CRCL 77.92 LAB L501.1300 10-20 RATIO High BUN/CRE 21.1 LAB L501.2200 8.5-10 mg/dL Normal .1 CA 9.2 LAB L501.5300 136-14 mmol/L Normal 5 NA 141 LAB L501.5600 3.5-5. mmol/L Normal 1 K 4.0 LAB L501.5900 98-107 mmol/L Normal CL 104 LAB L501.6100 21.0-3 mmol/L Normal 2.0 CO2 27.0 LAB L501.6200 5-15 Normal GAP 10 Performed By: #### L500.2500 #### [facility] [address] [place], [address] ,SERUM,HCG QUALI. Collected: Status: F Source: [place] 08/23/2018 10:20 AM [facility] REPOSITORY TYPE CODE TESTS RESULT OUT OF REFERENCE UNITS RANGE LAB L700.7000 0-9 Nonpreg Negative Normal HCGSQUAL NEGATIVE LAB L700.6700 =>Qualitative mIU/mL Normal HCG Qual < 1 triggr Performed By: #### L700.6800 #### [facility] [address] [place], [address] PROGRESS Observed: 08/23/2018 Status: COMPLETED Source: [place] 9:47 AM [facility] [place] REPOSITORY HNO ID: [id number] Author: Tashi Mo) Danette Service: (none) Author Type: Physician Chief Merchandising Officer Type: Progress Notes Filed: 08/23/2018 9:51 AM Note Text: Subjective HPI Pt presents to express care with concerns of viral meningitis. 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 She started to have low back pain, fevers, and headache x 3 days. She denies dysuria, frequency or urgency. She has had kidney infections before but this feels nothing like that. She has had some nausea, no vomiting. No diarrhea. Review of Systems Constitutional: Positive for fever. Gastrointestinal: Positive for nausea. Musculoskeletal: Positive for back pain. Neurological: Positive for headaches. All other systems reviewed and are negative. PAST MEDICAL HISTORY Diagnosis Date - Endometriosis 2016 stage 3 - Other and unspecified ovarian cyst Ovarian cyst - PMH - PAST MEDICAL HISTORY OF ELEVATED PTT Current Outpatient Prescriptions: fluticasone (FLONASE) 50 mcg/actuation nasal spray Use 2 Sprays in each nostril once daily. Rinse mouth after use. Disp: 1 Bottle Rfl: 11 cetirizine-pseudoephedrine (ZYRTEC-D) 5-120 mg per tablet Take 1 tablet by mouth twice daily. Disp: 30 tablet Rfl: 0 No current facility-administered medications for this visit. 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 - REMOVAL OF TONSILS,<12 Y/O Tonsillectomy FAMILY HISTORY Problem Relation Age of Onset - Breast Cancer Maternal Aunt - Breast Cancer Mother - Heart Father 55 mild [place] - Heart Maternal Uncle - Alcohol/Drug Maternal Grandfather ETOH - Alcohol/Drug Paternal Grandfather ETOH - Alcohol/Drug Paternal Grandmother ETOH - Diabetes Maternal Aunt - Diabetes Maternal Aunt - COPD Father - Stroke Paternal Uncle - Hypertension Father - Multiple Sclerosis Maternal Aunt Social History Substance Use Topics - Smoking status: Former Smoker Years: 1.00 Types: Cigarettes Quit date: 05/05/2006 - Smokeless tobacco: Never Used - Alcohol use No BP 122/82 Pulse 66 Temp 36.6 ?C (97.8 ?F) (Tympanic) Resp 16 Wt 74.9 kg (165 lb 3.2 oz) BMI 27.49 kg/m? Objective Physical Exam Constitutional: She is well-developed, well-nourished, and in no distress. Nursing note and vitals reviewed. ASSESSMENT/PLAN: 1. Headache, unspecified headache type - ICD9: 784.0, ICD10: R51 Pt is concerned for viral meningitis and has been exposed recently. I did refer her to the ED. SHe was comfortable going to [facility] ER by carLaura Willis PA-C CNOV Observed: 08/23/2018 Status: COMPLETED Source: [place] 9:30 AM [facility] REPOSITORY Office Visit (WSTR) ANGELIKA SHAHID I ([id number]) 1990 F Date Time Provider Department 08/23/18 9:30 AM TASHI WILLIS (ADRY) [facility] During your visit today, we recorded the following information about you: Temperature Pulse Respiration Blood pressure 97.8 degrees 66/minute 16/minute 122/82 Weight 74.9 kg Tashi Willis PA-C 08/23/2018 9:51 AM Signed Subjective HPI Pt presents to express care with concerns of viral meningitis. 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 She started to have low back pain, fevers, and headache x 3 days. She denies dysuria, frequency or urgency. She has had kidney infections before but this feels nothing like that. She has had some nausea, no vomiting. No diarrhea. Review of Systems Constitutional: Positive for fever. Gastrointestinal: Positive for nausea. Musculoskeletal: Positive for back pain. Neurological: Positive for headaches. All other systems reviewed and are negative. PAST MEDICAL HISTORY Diagnosis Date - Endometriosis 2016 stage 3 - Other and unspecified ovarian cyst Ovarian cyst - PMH - PAST MEDICAL HISTORY OF ELEVATED PTT Current Outpatient Prescriptions: fluticasone (FLONASE) 50 mcg/actuation nasal spray Use 2 Sprays in each nostril once daily. Rinse mouth after use. Disp: 1 Bottle Rfl: 11 cetirizine-pseudoephedrine (ZYRTEC-D) 5-120 mg per tablet Take 1 tablet by mouth twice daily. Disp: 30 tablet Rfl: 0 No current facility-administered medications for this visit. 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 - REMOVAL OF TONSILS,<12 Y/O Tonsillectomy FAMILY HISTORY Problem Relation Age of Onset - Breast Cancer Maternal Aunt - Breast Cancer Mother - Heart Father 55 mild [place] - Heart Maternal Uncle - Alcohol/Drug Maternal Grandfather ETOH - Alcohol/Drug Paternal Grandfather ETOH - Alcohol/Drug Paternal Grandmother ETOH - Diabetes Maternal Aunt - Diabetes Maternal Aunt - COPD Father - Stroke Paternal Uncle - Hypertension Father - Multiple Sclerosis Maternal Aunt Social History Substance Use Topics - Smoking status: Former Smoker Years: 1.00 Types: Cigarettes Quit date: 05/05/2006 - Smokeless tobacco: Never Used - Alcohol use No BP 122/82 Pulse 66 Temp 36.6 ?C (97.8 ?F) (Tympanic) Resp 16 Wt 74.9 kg (165 lb 3.2 oz) BMI 27.49 kg/m? Objective Physical Exam Constitutional: She is well-developed, well-nourished, and in no distress. Nursing note and vitals reviewed. ASSESSMENT/PLAN: 1. Headache, unspecified headache type - ICD9: 784.0, ICD10: R51 Pt is concerned for viral meningitis and has been exposed recently. I did refer her to the ED. SHe was comfortable going to [facility] ER by car. Tashi Willis PA-C Referring Provider: SELF [200] Allergies As of Date: 08/23/2018 Noted Allergy Reaction soap [Other] 07/31/2005 2 - Rash Comments: Tide laundry deterg. especially per pt. FOOD EXTRACTS 04/26/2014 8 - GI Upset 14 - Other: See Comments Comments: ANCHOVIES Causes fevers, I can't move MORPHINE 01/08/2016 1 - Mental Status Change ORANGE 01/23/2010 4 - Hives Comments: Pt has a reaction to oranges if consumed in large amounts. 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.*INVALID FOR*12/12/2015 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 Strepto*INVALID FOR*01/23/2010 Hirsutism [L68.0] INVALID FOR*04/06/2012 Supervision of other high-risk [O09.8*INVALID FOR*01/03/2011 IUD surveillance [Z30.431] INVALID FOR*04/06/2012 Oligomenorrhea [N91.5] INVALID FOR*12/12/2015 Chronic pelvic pain in female [R10.2, G89.29] INVALID FOR* Endometriosis [N80.9] INVALID FOR* 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] INVALID FOR* Fibromyalgia [M79.7] INVALID FOR* Encounter Status:Closed by TASHI WILLIS PA-C on 08/23/18 CBC Collected: 2018 Status: F Source: [place] 10:50 AM [facility] TYPE CODE TESTS RESULT OUT OF REFERENCE UNITS RANGE LAB WBC 3.70-11.00 k/uL WBC 3.76 LAB RBC 3.90-5.20 m/uL RBC 4.47 LAB HGB 11.5-15.5 g/dL Hemoglobin 13.2 LAB HCT 36.0-46.0 % Hematocrit 41.5 LAB MCV 80.0-100.0 fL MCV 92.8 LAB MCH 26.0-34.0 pG MCH 29.5 LAB MCHC 30.5-36.0 g/dL MCHC 31.8 LAB RDWCV 11.5-15.0 % RDW-CV 12.3 LAB PLTCT 150-400 k/uL Platelet Count 283 LAB MPV 9.0-12.7 fL MPV 9.9 LAB ABSNUC <0.01 k/uL Absolute nRBC <0.01 Performed By: #### CBC, CMP, LIPB, TSH, VITD, HBA1C #### [facility] [address] [place], [place] [address] COMP METABOLIC PANEL Collected: 2018 Status: F Source: [place] 10:50 AM [facility] REPOSITORY TYPE CODE TESTS RESULT OUT OF REFERENCE UNITS RANGE LAB TP 6.3-8.0 g/dL Protein, Total 6.6 LAB ALB 3.9-4.9 g/dL Albumin 4.3 LAB CA 8.5-10.2 mg/dL Calcium, Total 9.0 LAB TBIL 0.2-1.3 mg/dL Bilirubin, Total 0.3 LAB ALKP 32-117 U/L Alkaline Phosphatase 34 LAB AST 13-35 U/L AST 17 LAB GLU 74-99 mg/dL Glucose 90 Result Comment: The [place] Diabetes Association (ADA) provides guidance for cutoff values for fasting glucose and random glucose. The ADA defines fasting as no caloric intake for at least 8 hours. Fas ting plasma glucose results between 100 to 125 mg/dL indicate increased risk for diabetes (prediabetes). Fasting plasma glucose results greater than or equal to 126 mg/dL meet the criteria for diagnosis of diabetes. In the absence of unequivocal hyperglycemia, results should be confirmed by repeat testing. In a patient with classic symptoms of hyperglycemia or hyperglycemic crisis, random plasma glucose results greater than or equal to 200 mg/dL meet the criteria for diagnosis of diabetes. Reference: Standards of Medical Care in Diabetes 2016, [place] Diabetes Association. Diabetes Care. 2016.39(Suppl 1). LAB BUN 7-21 mg/dL BUN 15 LAB CRET 0.58-0.96 mg/dL Creatinine High 0.97 LAB NA 136-144 mmol/L Sodium 140 LAB K 3.7-5.1 mmol/L Potassium 4.4 LAB CL 97-105 mmol/L Chloride 104 LAB CO2 22-30 mmol/L CO2 22 LAB AGAP 9-18 mmol/L Anion Gap 14 LAB ALT 7-38 U/L ALT 14 LAB GFRAA eGFR- Amer. >60 LAB GFRNAA . eGFR-All Other Races >60 Result Comment: eGFR (Estimated GFR) Units of measure: mL/min/1.73 meters squared eGFR is derived from the reexpressed MDRD Study equation using the following parameters: serum creatinine, age, gender and race. The creatinine assay has been calibrated to be traceable to IDMS. An eGFR <60 mL/min/1.73m2 for >3 months is consistent with chronic kidney disease. Refer to KDOQI guidelines for clinical interpretation. In patients with unstable renal function, e.g. those with acute kidney injury, the eGFR may not accurately reflect actual GFR. Performed By: #### CBC, CMP, LIPB, TSH, VITD, HBA1C #### [facility] [address] [place] [address] LIPID PANEL, BASIC Collected: 2018 Status: F Source: [place] 10:50 AM [facility] [place] REPOSITORY TYPE CODE TESTS RESULT OUT OF REFERENCE UNITS RANGE LAB CHOL <200 mg/dL Cholesterol 169 Result Comment: <200 mg/dL, Desirable 200-239 mg/dL, Borderline high >239 mg/dL, High LAB TRIGLY <150 mg/dL Triglyceride 98 Result Comment: <150 mg/dL, Normal 150-199 mg/dL, Borderline high 200-499 mg/dL, High >499 mg/dL, Very high LAB HDL >39 mg/dL HDL-Cholesterol 44 Result Comment: 40-59 mg/dL, Acceptable >59 mg/dL, High: Negative risk factor for coronary heart disease <40 mg/dL, Low: Positive risk factor for coronary heart disease LAB LDL <100 mg/dL LDL-Cholesterol High 105 Result Comment: <100 mg/dL, Optimal 100-129 mg/dL, Near optimal/above optimal 130-159 mg/dL, Borderline high 160-189 mg/dL, High >189 mg/dL, Very high Secondary prevention optimal LDL Cholesterol levels are recommended to be < 70 mg/dL LAB NONHDL <130 mg/dL Non HDL Cholesterol 125 Result Comment: <130 mg/dL, Optimal 130-159 mg/dL, Near optimal/above optimal 160-189 mg/dL, Borderline high 190-219 mg/dL, High >219 mg/dL, Very high Secondary prevention optimal non HDL Cholesterol levels are recommended to be < 100 mg/dL LAB FT hrs Fasting Time 12 LAB VLDL <30 mg/dL VLDL Cholesterol 20 LAB TCHDL <5.10 TC:HDL Ratio 3.84 LAB LDLHDL <2.54 LDL:HDL Ratio 2.39 Result Comment: Reference: 1. National Cholesterol Education Program ATP III Guideline At-A-Glance Quick Desk Reference: National Heart, Lung, and Blood Slater. National Institutes of Health. 2001: NIH Publication No. 01-3305. 2. An International Atherosclerosis Society position paper: global recommendations for the management of dyslipidemia: executive summary, Atherosclerosis. 2014: 232(2):410-413. Performed By: #### CBC, CMP, LIPB, TSH, VITD, HBA1C #### [facility] [address] [place] [address] TSH Collected: 2018 Status: F Source: [place] 10:50 AM [facility] [place] REPOSITORY TYPE CODE TESTS RESULT OUT OF RANGE REFERENCE UNITS LAB TSH 0.400-5.500 uU/mL TSH 1.730 Result Comment: If the patient is , TSH reference range varies by gestational period: First Trimester 0.100-2.500 uU/mL Second Trimester 0.200-3.000 uU/mL Third Trimester 0.300-3.000 uU/mL References: 1. De Maikel L, Bobbi M, Cristino EK, et al. Management of Thyroid Dysfunction during and : An Endocrine Society Clinical Practice Guideline. J Clin Endocrinol Metab, 2012:97:5455-8422. 2. Maynor WATKINS. Overview of thyroid disease in . UpToDate. 2016. Accessed on May 16, 2016. Performed By: #### CBC, CMP, LIPB, TSH, VITD, HBA1C #### [facility] [address] [place], [place] [address] VITAMIN D 25 HYDROXY Collected: 2018 Status: F Source: [place] 10:50 AM [facility] REPOSITORY TYPE CODE TESTS RESULT OUT OF REFERENCE UNITS RANGE LAB VITD 31.0-80.0 ng/mL Vitamin D 25 42.5 Hydroxy Result Comment: Classification of 25 [place] Vitamin D status: Insufficiency/Moderate Deficiency: < or = 30 ng/mL Sufficiency/Optimal Levels: 31 to 80 ng/mL Toxicity: > 100 ng/mL Test performed by chemiluminescent immunoassay. Performed By: #### CBC, CMP, LIPB, TSH, VITD, HBA1C #### [facility] [address], [place] [address] HEMOGLOBIN A1C Collected: 2018 Status: F Source: [place] 10:50 AM [facility] REPOSITORY TYPE CODE TESTS RESULT OUT OF REFERENCE UNITS RANGE LAB HGBA1C 4.3-5.6 % Hemoglobin A1c 5.2 LAB HBA0 mg/dL Est. Average Glucose 103 Result Comment: eAG: (Estimated average glucose) is a calculated value from HgbA1c and is civil rights representative of the average blood glucose level in the last 2-3 month period. Performed By: #### CBC, CMP, LIPB, TSH, VITD, HBA1C #### [facility] [address] [place], [place] [address] PROGRESS Observed: 07/23/2018 Status: COMPLETED Source: [place] 3:13 PM [facility] REPOSITORY O ID: [id number] Author: Devyn Luis Service: (none) Author Type: Physician Type: Progress Notes Filed: 07/23/2018 3:17 PM Note Text: CC: Angelika Shahid is a 27 year old female who presents to the office for a physical HPI: Overall is doing well, she is working on cutting out sugars, sodas and simple carbohydrates from her diet, she has intentionally been able to lose 30-35 lbs in the last 1 year. More physically active and is walking daily for exercise. 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 - REMOVAL OF TONSILS,<10 Y/O Tonsillectomy Social History: Social History Substance Use Topics - Smoking status: Former Smoker Years: 1.00 Types: Cigarettes Quit date: 05/05/2006 - Smokeless tobacco: Never Used - Alcohol use No FAMILY HISTORY Problem Relation Age of Onset - Breast Cancer Maternal Aunt - Breast Cancer Mother - Heart Father 55 mild [place] - Heart Maternal Uncle - Alcohol/Drug Maternal Grandfather ETOH - Alcohol/Drug Paternal Grandfather ETOH - Alcohol/Drug Paternal Grandmother ETOH - Diabetes Maternal Aunt - Diabetes Maternal Aunt - COPD Father - Stroke Paternal Uncle - Hypertension Father - Multiple Sclerosis Maternal Aunt Current Outpatient prescriptions: fluticasone (FLONASE) 50 mcg/actuation nasal spray Use 2 Sprays in each nostril once daily. Rinse mouth after use. cetirizine-pseudoephedrine (ZYRTEC-D) 5-120 mg per tablet Take 1 tablet by mouth twice daily. Allergies: ALLERGIES Allergen Reactions - Soap [Other] Rash Tide laundry deterg. especially per pt. - Food Extracts GI Upset, Other: See Comments ANCHOVIES Causes fevers, I can't move - Morphine Mental Status Change - Garvin Hives Pt has a reaction to oranges if consumed in large amounts. ROS: See HPI PE: 07/23/18 1409 BP: 90/60 Pulse: 68 Resp: 16 Temp: (!) 35.6 ?C (96.1 ?F) TempSrc: Left Tympanic Weight: 75.8 kg (167 lb) Gen: AANDO, NAD, non-toxic appearing, Pleasant, cooperative HEENT: NT/AC, PERRLA, EOMs intact b/l, nares clear and patent b/l, pharynx without erythema, exudate or lesions. Uvula midline. EACs without erythema or debris. TMs pearly gaston with intact landmarks b/l. Neck: supple, No cervical LAD, no thyromegaly, no carotid bruits CV: RRR, normal S1 and S2, no murmurs, no gallops, no rubs, Pulses 2+ and symmetric in UE and LE b/l Lungs: normal respiratory effort, CTA b/l, no wheezing or rhonchi or rales Abd: soft, NT, ND, +BS, no hepatosplenomegaly MS: FROM all 4 extremities Neuro: CN II-XII intact b/l, strength 5/5 b/l UE and LE, DTRs 2/4 UE and LE, sensation intact. Skin: warm, dry, intact, No rashes or lesions on exposed skin. ASSESSMENT/PLAN: 1. Routine physical examination - ICD9: V70.0, ICD10: Z00.00 (primary diagnosis) - Encouraged monthly Breast Self Exam - Recommended regular aerobic exercise. - Discussed need and benefit for weight loss. BMI 27.79 kg/(m2) - Follow up for annual exam in one year. - COMP METABOLIC PANEL - TSH BLD - HGB A1C - VITAMIN D 25 HYDROXY - LIPID PANEL BASIC - CBC 2. Vitamin D deficiency - ICD9: 268.9, ICD10: E55.9 - recheck level - VITAMIN D 25 HYDROXY Devyn Luis DO To ER if develops chest pain, shortness of breath, or severe worsening of symptoms. Discussed risks, benefits, alternatives, and potential side effects of medications. Patient expressed understanding and agreed with the plan. Devyn Luis DO [address] [place] [address] CNOV Observed: 07/23/2018 Status: COMPLETED Source: [place] 2:20 PM [facility] REPOSITORY Office Visit (FAMPWS) ANGELIKA SHAHID I ([id number]) 1990 F Date Time Provider Department 07/23/18 2:20 PM DEVYN LUIS During your visit today, we recorded the following information about you: Temperature Pulse Respiration Blood pressure 96.1 degrees 68/minute 16/minute 90/60 Weight 75.8 kg Devyn LuisDO 07/23/2018 3:17 PM Signed CC: Angelika Shahid is a 27 year old female who presents to the office for a physical HPI: Overall is doing well, she is working on cutting out sugars, sodas and simple carbohydrates from her diet, she has intentionally been able to lose 30-35 lbs in the last 1 year. More physically active and is walking daily for exercise. 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 - REMOVAL OF TONSILS,<12 Y/O Tonsillectomy Social History: Social History Substance Use Topics - Smoking status: Former Smoker Years: 1.00 Types: Cigarettes Quit date: 05/05/2006 - Smokeless tobacco: Never Used - Alcohol use No FAMILY HISTORY Problem Relation Age of Onset - Breast Cancer Maternal Aunt - Breast Cancer Mother - Heart Father 55 mild [place] - Heart Maternal Uncle - Alcohol/Drug Maternal Grandfather ETOH - Alcohol/Drug Paternal Grandfather ETOH - Alcohol/Drug Paternal Grandmother ETOH - Diabetes Maternal Aunt - Diabetes Maternal Aunt - COPD Father - Stroke Paternal Uncle - Hypertension Father - Multiple Sclerosis Maternal Aunt Current Outpatient prescriptions: fluticasone (FLONASE) 50 mcg/actuation nasal spray Use 2 Sprays in each nostril once daily. Rinse mouth after use. cetirizine-pseudoephedrine (ZYRTEC-D) 5-120 mg per tablet Take 1 tablet by mouth twice daily. Allergies: ALLERGIES Allergen Reactions - Soap [Other] Rash Tide laundry deterg. especially per pt. - Food Extracts GI Upset, Other: See Comments ANCHOVIES Causes fevers, I can't move - Morphine Mental Status Change - Garvin Hives Pt has a reaction to oranges if consumed in large amounts. ROS: See HPI PE: 07/23/18 1409 BP: 90/60 Pulse: 68 Resp: 16 Temp: (!) 35.6 ?C (96.1 ?F) TempSrc: Left Tympanic Weight: 75.8 kg (167 lb) Gen: AANDO, NAD, non-toxic appearing, Pleasant, cooperative HEENT: NT/AC, PERRLA, EOMs intact b/l, nares clear and patent b/l, pharynx without erythema, exudate or lesions. Uvula midline. EACs without erythema or debris. TMs pearly gaston with intact landmarks b/l. Neck: supple, No cervical LAD, no thyromegaly, no carotid bruits CV: RRR, normal S1 and S2, no murmurs, no gallops, no rubs, Pulses 2+ and symmetric in UE and LE b/l Lungs: normal respiratory effort, CTA b/l, no wheezing or rhonchi or rales Abd: soft, NT, ND, +BS, no hepatosplenomegaly MS: FROM all 4 extremities Neuro: CN II-XII intact b/l, strength 5/5 b/l UE and LE, DTRs 2/4 UE and LE, sensation intact. Skin: warm, dry, intact, No rashes or lesions on exposed skin. ASSESSMENT/PLAN: 1. Routine physical examination - ICD9: V70.0, ICD10: Z00.00 (primary diagnosis) - Encouraged monthly Breast Self Exam - Recommended regular aerobic exercise. - Discussed need and benefit for weight loss. BMI 27.79 kg/(m2) - Follow up for annual exam in one year. - COMP METABOLIC PANEL - TSH BLD - HGB A1C - VITAMIN D 25 HYDROXY - LIPID PANEL BASIC - CBC 2. Vitamin D deficiency - ICD9: 268.9, ICD10: E55.9 - recheck level - VITAMIN D 25 HYDROXY Devyn Luis DO To ER if develops chest pain, shortness of breath, or severe worsening of symptoms. Discussed risks, benefits, alternatives, and potential side effects of medications. Patient expressed understanding and agreed with the plan. Devyn Luis DO [address] [place] [address] Referring Provider: DEVYN LUIS [[id number]] Allergies As of Date: 07/23/2018 Noted Allergy Reaction soap [Other] 07/31/2005 2 - Rash Comments: Tide laundry deterg. especially per pt. FOOD EXTRACTS 04/26/2014 8 - GI Upset 14 - Other: See Comments Comments: ANCHOVIES Causes fevers, I can't move MORPHINE 01/08/2016 1 - Mental Status Change ORANGE 01/23/2010 4 - Hives Comments: Pt has a reaction to oranges if consumed in large amounts. Date Reviewed: 07/23/2018 Reviewed by: Keisha Hall LPN - Fully Assessed Reason for Visit: Follow Up [171] Primary Visit Diagnosis:Routine physical examination [Z00.00] Other Visit Diagnosis:Vitamin D deficiency [E55.9] Order(s):COMP METABOLIC PANEL [SQCMP] Order #: [id number] FUTURE TSH BLD [SQTSH] Order #: [id number] FUTURE HGB A1C [EQCOX9B] Order #: [id number] FUTURE VITAMIN D 25 HYDROXY [SQVITD] Order #: [id number] FUTURE LIPID PANEL BASIC [SQLIPB] Order #: [id number] FUTURE CBC [SQCBC] Order #: [id number] FUTURE Prescriptions as of 07/23/2018 Sig: FLUTICASONE 50 MCG/ACTUATION * Use 2 Sprays in each nostril * CETIRIZINE 5 MG-PSEUDOEPHEDRI* Take 1 tablet by mouth twice * Problem List As Of Date 07/23/2018 Noted Resolved Supervision of Normal First [Z34.00] INVALID FOR*01/23/2010 Other and unspecified coagulation defects [D68.*INVALID FOR*12/12/2015 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 Strepto*INVALID FOR*01/23/2010 Hirsutism [L68.0] INVALID FOR*04/06/2012 Supervision of other high-risk [O09.8*INVALID FOR*01/03/2011 IUD surveillance [Z30.431] INVALID FOR*04/06/2012 Oligomenorrhea [N91.5] INVALID FOR*12/12/2015 Chronic pelvic pain in female [R10.2, G89.29] INVALID FOR* Endometriosis [N80.9] INVALID FOR* 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] INVALID FOR* Fibromyalgia [M79.7] INVALID FOR* Encounter Status:Closed by DEVYN LUIS DO on 07/23/18 EMERGENCY DEPARTMENT Observed: 05/25/2018 Status: F Source: [place] SUMMARY 6:37 PM [facility] REPOSITORY [facility] Medical Records Department [address] [place] [address] Emergency Department Summary 05/25/18 1829 MR#: [id number] Acct: [id number] Name: ANGELIKA SHAHID I Rep #: [id number] : 1990 27 From: Ricky Blanton MD PCP: Devyn Gilliland DO Status: PRE ER - ER Visit Summary Date of Service: 05/25/18 Chief Complaint: Puncture wound History of Present Illness: The patient is a 27 F puncture wound to my she stepped on a nail yesterday. Physical Examination: There was normal exam, there is a puncture wound forefoot. Slight swelling but no ecchymoses or erythema. Test Results: [] Emergency Department Course and Treatment: Patient will be treated with tetanus, antibiotics will be given Disposition: Discharge stable condition Impression: Puncture wound This note was generated with [employer] dictation software. It may contain incorrect words, spelling, and punctuation that were not noted in review of the chart prior to signing ED Disposition - Plan for ED Patient: Disposition: Home or Assisted Living Chief Complaint: Lower Extremity Injury Instructions: ED Wound Puncture Foot Prescriptions: Cephalexin [Keflex] 500 mg PO Q6 #20 cap Cephalexin [Keflex] 500 mg PO 4X/DAY 5 Days #20 capsule Referrals: Devyn Luis DO [Primary Care Provider] - 2 Days What to do if you have Problems For any increased pain, shortness of breath, bleeding, nausea or vomiting, chest pain, or any unexpected problems, contact your Primary Care Provider. Call [facility] ([phone]) or report to the closest Emergency Room. Call 911 if necessary. 05/25/18 9060 <Electronically signed by Ricky Blanton MD> Date Ricky Blanton MD Cosigner Signature (If Indicated): Date CC: Devyn Gilliland DO FOOT MIN 3 VIEWS Observed: 05/25/2018 Status: F Source: [place] 5:14 PM [facility] REPOSITORY [facility] Imaging Services [address] [place] [address] Foot min 3 Views MR#: [id number] Acct: [id number] Name: ANGELIKA SHAHID I Rep #: [id number] : 1990 F 27 From: García Hanna MD PCP: Devyn Gilliland DO Status: PRE ER Study: Foot min 3 Views Date of Exam: 05/25/18 Exam# [id number] Ordering Dr: Provider, Ed P. STUDY: X-RAY - RIGHT FOOT CLINICAL: Female, 27 years old. Patient stepped on nail. TECHNIQUE: 3 view(s) of the foot. COMPARISON: None. FINDINGS: Normal talus, calcaneus, and tarsal bones. Normal visualized subtalar, talonavicular, calcaneocuboid, tarsal and tarsometatarsal articulations. Normal metatarsi. Normal metatarsophalangeal joint of the great toe. Normal tibial and fibular sesamoid bones. Normal interphalangeal joint of the great toe. Normal phalanges of the great toe. Normal second through fifth metatarsophalangeal joints. Normal interphalangeal joints and phalanges of the lesser toes. There is no demonstrated radio-opaque foreign body. There is soft tissue swelling. There is no demonstrated fracture. RAD/Foot min 3 Views IMPRESSION: Soft tissue swelling. No fracture or foreign body seen. Electronically Signed: García Hanna MD at 17:47 EDT , Service support , CC: ED PHYSICIAN PROVIDER; Devyn Gilliland DO [employer] Systems Adminstrator: Signed PROGRESS Observed: 04/05/2018 Status: COMPLETED Source: [place] 9:22 AM [facility] [place] REPOSITORY HNO ID: [id number] Author: Yomi Gomez (Clif) Service: (none) Author Type: Nurse Practitioner Type: Progress Notes Filed: 04/05/2018 9:48 AM Note Text: Subjective HPI HPI Angelika Shahid is a 27 year old female who presents today for CC of cough, chest congestion. This started 1 week ago. Has tried otc medication. Symptoms are worsened by nothing. 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. Denies possibility of being . .No chief complaint on file. 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 - REMOVAL OF TONSILS,<12 Y/O Tonsillectomy ALLERGIES Soap [Other]; Food Extracts; Morphine; Garvin MEDICATIONS fluticasone (FLONASE) 50 mcg/actuation nasal spray Use 2 Sprays in each nostril once daily. Rinse mouth after use. cetirizine-pseudoephedrine (ZYRTEC-D) 5-120 mg per tablet Take 1 tablet by mouth twice daily. FAMILY HISTORY Problem Relation Age of Onset - Breast Cancer Maternal Aunt - Breast Cancer Mother - Heart Father 55 mild [place] - Heart Maternal Uncle - Alcohol/Drug Maternal Grandfather ETOH - Alcohol/Drug Paternal Grandfather ETOH - Alcohol/Drug Paternal Grandmother ETOH - Diabetes Maternal Aunt - Diabetes Maternal Aunt - COPD Father - Stroke Paternal Uncle - Hypertension Father - Multiple Sclerosis Maternal Aunt Social History Substance Use Topics - Smoking status: Former Smoker Years: 1.00 Types: Cigarettes Quit date: 05/05/2006 - Smokeless tobacco: Never Used - Alcohol use No Review of Systems Constitutional: Negative for chills, fever and weight loss. HENT: Positive for congestion. Negative for ear pain, nosebleeds and sore throat. Respiratory: Positive for cough. Negative for shortness of breath and wheezing. Cardiovascular: Negative for chest pain. Musculoskeletal: Negative for neck pain. Objective Blood pressure 110/90, pulse 69, temperature (!) 35.8 ?C (96.5 ?F), temperature source Left Tympanic, resp. rate 14, weight 77.6 kg (171 lb), SpO2 98 %. Physical Exam Constitutional: She is oriented to person, place, and time and well-developed, well-nourished, and in no distress. Non-toxic appearance. She has a sickly appearance (mild). No distress. HENT: Head: Normocephalic and atraumatic. Right Ear: Hearing, tympanic membrane, external ear and ear canal normal. Left Ear: Hearing, tympanic membrane, external ear and ear canal normal. Nose: Nose normal. Mouth/Throat: Uvula is midline, oropharynx is clear and moist and mucous membranes are normal. Eyes: Conjunctivae and lids are normal. Pupils are equal, round, and reactive to light. Right eye exhibits no discharge. Left eye exhibits no discharge. No scleral icterus. Neck: Trachea normal and normal range of motion. Neck supple. Cardiovascular: Normal rate, regular rhythm and normal heart sounds. Pulmonary/Chest: Effort normal. She has rhonchi (scattered, clear with cough). Loose cough during exam, persistent Lymphadenopathy: She has no cervical adenopathy. Neurological: She is alert and oriented to person, place, and time. Skin: No rash noted. She is not diaphoretic. ASSESSMENT/PLAN: 1. Bronchitis - ICD9: 490, ICD10: J40 - Discussed supportive care, given educational handout - Limit exposure to smoke and other inhaled irritants - Discussed possible red flags and when to seek medical attention - Follow up in 3-5 days or sooner if no better or worse -If you experience chest pain/shortness of breath go to ER Prescription instructions reviewed with patient as applicable. Patient advised if symptoms do not improve or if symptoms worsen sooner, to contact the office for further evaluation by their primary care physician. Potential red flag symptoms discussed with the patient. Reviewed appropriate action plan to take if red flag symptoms occur. Patient agreeable to treatment plan. Yomi Gomez APRN.CLIF CNOV Observed: 04/05/2018 Status: COMPLETED Source: [place] 9:15 AM [facility] REPOSITORY Office Visit (WSTR) ZEHRAANGELIKA GAYLE I ([id number]) 1990 F Date Time Provider Department 04/05/18 9:15 AM [facility] (CLIF[facility] During your visit today, we recorded the following information about you: Temperature Pulse Respiration Blood pressure 96.5 degrees 69/minute 14/minute 110/90 Weight 77.6 kg Yomi Gomez (Clif) 04/05/2018 9:48 AM Signed Subjective HPI HPI Angelikalevi Shahid is a 27 year old female who presents today for CC of cough, chest congestion. This started 1 week ago. Has tried otc medication. Symptoms are worsened by nothing. 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 Denies possibility of being . .No chief complaint on file. 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 - REMOVAL OF TONSILS,<12 Y/O Tonsillectomy ALLERGIES Soap [Other]; Food Extracts; Morphine; Garvin MEDICATIONS fluticasone (FLONASE) 50 mcg/actuation nasal spray Use 2 Sprays in each nostril once daily. Rinse mouth after use. cetirizine-pseudoephedrine (ZYRTEC-D) 5-120 mg per tablet Take 1 tablet by mouth twice daily. FAMILY HISTORY Problem Relation Age of Onset - Breast Cancer Maternal Aunt - Breast Cancer Mother - Heart Father 55 mild [place] - Heart Maternal Uncle - Alcohol/Drug Maternal Grandfather ETOH - Alcohol/Drug Paternal Grandfather ETOH - Alcohol/Drug Paternal Grandmother ETOH - Diabetes Maternal Aunt - Diabetes Maternal Aunt - COPD Father - Stroke Paternal Uncle - Hypertension Father - Multiple Sclerosis Maternal Aunt Social History Substance Use Topics - Smoking status: Former Smoker Years: 1.00 Types: Cigarettes Quit date: 05/05/2006 - Smokeless tobacco: Never Used - Alcohol use No Review of Systems Constitutional: Negative for chills, fever and weight loss. HENT: Positive for congestion. Negative for ear pain, nosebleeds and sore throat. Respiratory: Positive for cough. Negative for shortness of breath and wheezing. Cardiovascular: Negative for chest pain. Musculoskeletal: Negative for neck pain. Objective Blood pressure 110/90, pulse 69, temperature (!) 35.8 ?C (96.5 ?F), temperature source Left Tympanic, resp. rate 14, weight 77.6 kg (171 lb), SpO2 98 %. Physical Exam Constitutional: She is oriented to person, place, and time and well-developed, well-nourished, and in no distress. Non-toxic appearance. She has a sickly appearance (mild). No distress. HENT: Head: Normocephalic and atraumatic. Right Ear: Hearing, tympanic membrane, external ear and ear canal normal. Left Ear: Hearing, tympanic membrane, external ear and ear canal normal. Nose: Nose normal. Mouth/Throat: Uvula is midline, oropharynx is clear and moist and mucous membranes are normal. Eyes: Conjunctivae and lids are normal. Pupils are equal, round, and reactive to light. Right eye exhibits no discharge. Left eye exhibits no discharge. No scleral icterus. Neck: Trachea normal and normal range of motion. Neck supple. Cardiovascular: Normal rate, regular rhythm and normal heart sounds. Pulmonary/Chest: Effort normal. She has rhonchi (scattered, clear with cough). Loose cough during exam, persistent Lymphadenopathy: She has no cervical adenopathy. Neurological: She is alert and oriented to person, place, and time. Skin: No rash noted. She is not diaphoretic. ASSESSMENT/PLAN: 1. Bronchitis - ICD9: 490, ICD10: J40 - Discussed supportive care, given educational handout - Limit exposure to smoke and other inhaled irritants - Discussed possible red flags and when to seek medical attention - Follow up in 3-5 days or sooner if no better or worse -If you experience chest pain/shortness of breath go to ER Prescription instructions reviewed with patient as applicable. Patient advised if symptoms do not improve or if symptoms worsen sooner, to contact the office for further evaluation by their primary care physician. Potential red flag symptoms discussed with the patient. Reviewed appropriate action plan to take if red flag symptoms occur. Patient agreeable to treatment plan. Yomi Gomez APRN.Yomi Sigala ([facility]) 04/05/2018 9:29 AM Signed ACUTE BRONCHITIS: You have acute bronchitis. This means the airway passages in your lungs are inflamed. Bronchitis may be caused by viruses or bacteria. Inhaling cigarette smoke will always make it worse. Exposure to irritating chemicals or second hand smoke as well as allergies can contribute to bronchitis. Repeat episodes of bronchitis may cause lifelong lung problems. Acute bronchitis is usually treated with rest, fluids, cough medicine, and possibly antibiotics or inhaled medicine to open up the small airways. It is very important that you avoid smoke and drink increased amounts of fluids. A cool air vaporizer can help thin bronchial secretions. This makes it easier to cough and clear your chest. If you are a cigarette smoker, consider using nicotine gum or skin patches to help you withdraw. Recovery from bronchitis is often slow, but you should start feeling better after 2-3 days of treatment. Please call your doctor or return here if you have any of the following symptoms: - Increased fever, chills, or chest pain. - Severe shortness of breath or bloody sputum. - Do not improve after 3 days of proper treatment. Referring Provider: SELF [[id number]] Allergies As of Date: 04/05/2018 Noted Allergy Reaction soap [Other] 07/31/2005 2 - Rash Comments: Tide laundry deterg. especially per pt. FOOD EXTRACTS 04/26/2014 8 - GI Upset 14 - Other: See Comments Comments: ANCHOVIES Causes fevers, I can't move MORPHINE 01/08/2016 1 - Mental Status Change ORANGE 01/23/2010 4 - Hives Comments: Pt has a reaction to oranges if consumed in large amounts. Date Reviewed: 04/05/2018 Reviewed by: Yomi Gomez (Clif) - Fully Assessed Primary Visit Diagnosis:Bronchitis [J40] Order(s):azithromycin (ZITHROMAX Z-JUDI) 250 mg tabletTake 2 tablets day one, then, 1 tablet daily until gone.Disp: 1 PackageRfl: 0 predniSONE (DELTASONE) 20 mg tabletTake 2 tablets by mouth once daily for 5 days.Disp: 10 tabletRfl: 0 Prescriptions as of 04/05/2018 Sig: FLUTICASONE 50 MCG/ACTUATION * Use 2 Sprays in each nostril * CETIRIZINE 5 MG-PSEUDOEPHEDRI* Take 1 tablet by mouth twice * AZITHROMYCIN 250 MG TABLET Take 2 tablets day one, then,* PREDNISONE 20 MG TABLET Take 2 tablets by mouth once * Problem List As Of Date 04/05/2018 Noted Resolved Supervision of Normal First [Z34.00] INVALID FOR*01/23/2010 Other and unspecified coagulation defects [D68.*INVALID FOR*12/12/2015 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 Strepto*INVALID FOR*01/23/2010 Hirsutism [L68.0] INVALID FOR*04/06/2012 Supervision of other high-risk [O09.8*INVALID FOR*01/03/2011 IUD surveillance [Z30.431] INVALID FOR*04/06/2012 Oligomenorrhea [N91.5] INVALID FOR*12/12/2015 Chronic pelvic pain in female [R10.2, G89.29] INVALID FOR* Endometriosis [N80.9] INVALID FOR* 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] INVALID FOR* Fibromyalgia [M79.7] INVALID FOR* Other instructions from your clinician: ACUTE BRONCHITIS: You have acute bronchitis. This means the airway passages in your lungs are inflamed. Bronchitis may be caused by viruses or bacteria. Inhaling cigarette smoke will always make it worse. Exposure to irritating chemicals or second hand smoke as well as allergies can contribute to bronchitis. Repeat episodes of bronchitis may cause lifelong lung problems. Acute bronchitis is usually treated with rest, fluids, cough medicine, and possibly antibiotics or inhaled medicine to open up the small airways. It is very important that you avoid smoke and drink increased amounts of fluids. A cool air vaporizer can help thin bronchial secretions. This makes it easier to cough and clear your chest. If you are a cigarette smoker, consider using nicotine gum or skin patches to help you withdraw. Recovery from bronchitis is often slow, but you should start feeling better after 2-3 days of treatment. Please call your doctor or return here if you have any of the following symptoms: - Increased fever, chills, or chest pain. - Severe shortness of breath or bloody sputum. - Do not improve after 3 days of proper treatment. Prescriptions ordered this encounter Disp Refills Start End AZITHROMYCIN 250 MG TABLET 1 Pa* 0 04/05/2018 04/10/2018 Sig: Take 2 tablets day one, then, 1 tablet daily until gone. PREDNISONE 20 MG TABLET 10 t* 0 04/05/2018 04/10/2018 Route: ORAL Sig: Take 2 tablets by mouth once daily for 5 days. Letter Text [place] [facility] Yomi Gomez CNP [address], [place] [address] 04/05/2018 Angelika Edwardsover [facility]# [id number] [address] [place] [id number] TO WHOM IT MAY CONCERN: This is to confirm that Angelika Shahid had an appointment and was seen at the [facility] in the Department of Urgent Care by Yomi Gomez CNP on 04/05/2018. Sincerely yours, Yomi Gomez CNP Encounter Status:Closed by YOMI GOMEZ CNP on 04/05/18 PROGRESS Observed: 01/14/2018 Status: COMPLETED Source: BUS[facility] 9:09 AM [facility] REPOSIT[facility] HNO ID: [id number] Author: Karen Lewis Service: (none) Author Type: Nurse Practitioner Type: Progress Notes Filed: 01/14/2018 9:39 AM Note Text: HPI HPI Angelika Shahid is a 27 year old female who presents today for CC of sore throat and loss of voice This started yesterday. She is also having pain in jaw and ears Symptoms are worsened by swallowing. She has tried theraflu and tylenol with short term relief. Risk factors works at [employer]. PMH not significant BP 90/76 Pulse 80 Temp 36.6 ?C (97.9 ?F) (Tympanic) Resp 14 Wt 77.6 kg (171 lb) LMP 12/31/2017 BMI 28.46 kg/m2 ALLERGIES Allergen Reactions - Soap [Other] Rash Tide laundry deterg. especially per pt. - Food Extracts GI Upset, Other: See Comments ANCHOVIES Causes fevers, I can't move - Morphine Mental Status Change - Garvin Hives Pt has a reaction to oranges if consumed in large amounts. ACTIVE PROBLEM LIST Chronic Pelvic Pain in Female Endometriosis Benign Hypermobility Syndrome Fibromyalgia Family History Problem Relation Age of Onset - Breast Cancer Maternal Aunt - Breast Cancer Mother - Heart Father 55 mild [place] - Heart Maternal Uncle - Alcohol/Drug Maternal Grandfather ETOH - Alcohol/Drug Paternal Grandfather ETOH - Alcohol/Drug Paternal Grandmother ETOH - Diabetes Maternal Aunt - Diabetes Maternal Aunt - COPD Father - Stroke Paternal Uncle - Hypertension Father - Multiple Sclerosis Maternal Aunt Social History Marital status: Spouse name: Maynor Years of education: 12 Number of children: 2 Occupational History Occupation Employer Comment HOME [employer] WORK[employer] Social History Main Topics Smoking status: Former Smoker Packs/day: 0.00 Years: 1.00 Types: Cigarettes Quit date: 05/05/2006 Smokeless status: Never Used Alcohol use: No Drug use: No Sexual activity: Yes Partners with: Male control/protection: Vasectomy Social History Narrative , 2 sons Carlos A and Victor M ages 3 and 5 yo Review of Systems Constitutional: Negative. Negative for chills, fever and malaise/fatigue. HENT: Positive for sore throat. Negative for congestion, ear pain and sinus pain. Respiratory: Negative for cough, sputum production, shortness of breath and wheezing. Cardiovascular: Negative for chest pain. Musculoskeletal: Negative for myalgias. Skin: Negative for rash. Neurological: Negative for headaches. Physical Exam Constitutional: She is well-developed, well-nourished, and in no distress. HENT: Head: Normocephalic and atraumatic. Right Ear: Tympanic membrane, external ear and ear canal normal. Tympanic membrane is not injected, not erythematous, not retracted and not bulging. No middle ear effusion. Left Ear: Tympanic membrane, external ear and ear canal normal. Tympanic membrane is not injected, not erythematous, not retracted and not bulging. No middle ear effusion. Nose: Nose normal. Right sinus exhibits no maxillary sinus tenderness and no frontal sinus tenderness. Left sinus exhibits no maxillary sinus tenderness and no frontal sinus tenderness. Mouth/Throat: Uvula is midline and mucous membranes are normal. Posterior oropharyngeal edema and posterior oropharyngeal erythema present. No oropharyngeal exudate or tonsillar abscesses. Eyes: Conjunctivae and EOM are normal. Pupils are equal, round, and reactive to light. Neck: Normal range of motion. Cardiovascular: Normal rate, regular rhythm and normal heart sounds. Pulmonary/Chest: Effort normal and breath sounds normal. No respiratory distress. She has no wheezes. She has no rales. Lymphadenopathy: Head (right side): No submental, no submandibular, no tonsillar, no preauricular and no posterior auricular adenopathy present. Head (left side): No submental, no submandibular, no tonsillar, no preauricular and no posterior auricular adenopathy present. She has no cervical adenopathy. Right cervical: No superficial cervical and no posterior cervical adenopathy present. Left cervical: No superficial cervical and no posterior cervical adenopathy present. Right: No supraclavicular adenopathy present. Left: No supraclavicular adenopathy present. Skin: Skin is warm and dry. Psychiatric: Affect normal. Nursing note and vitals reviewed. ASSESSMENT/PLAN: 1. Pharyngitis, unspecified etiology - ICD9: 462, ICD10: J02.9 (primary diagnosis) - suspect viral - Rapid Strep negative in the office today - overnight throat culture pending - Discussed supportive care treatment with fluids, rest and analgesia. - The patient may also use warm salt water gargles, throat lozenges and/or OTC throat spray as needed. - The patient should follow up in one week if symptoms persist or worsen - Call back if drooling, increased temperature, symptoms of dehydration and/or still sick in one week - Predisone 20 mg daily for 5 days, only use tylenol with this 2. Sore throat - ICD9: 462, ICD10: J02.9 - RAPID STREP TEST B/O - GROUP A STREPTOCOCCUS BY PCR Only call if Strep culture is positive. Diagnosis and treatment plan were discussed and questions were answered to the patient's satisfaction. Pt acknowledged understanding of concepts and follow up plan. Specific signs and symptoms that would indicate the need for higher level of care were discussed in detail warranting prompt ER evaluation. Karen Lewis CNP GROUP A STREP BY Collected: 01/14/2018 Status: F Source: BUS[facility] PCR 12:01 AM [facility] REPOSITORY TYPE CODE TESTS RESULT OUT OF REFERENCE UNITS RANGE LAB [facility] Throat Swab GAS Specimen Source LAB PCRGAS Negative for Group A Strep Group A PCR Streptococcus by PCR. Result Comment: This test was developed and its performance characteristics determined by [facility] ([facility]). It has not been cleared or approved by the FDA. [facility] is regulated under CLIA as qualified to perform high-complexity testing. This test is used for clinical purposes. It should not be regarded as inv estigational or for research. Performed By: #### [facility] #### [facility] [address] [place], [place] [address] PROGRESS Observed: 12/21/2017 Status: COMPLETED Source: BUSBY 9:22 AM [facility] REPOSIT[facility] HNO ID: [id number] Author: Nitesh Hopkins Service: (none) Author Type: Physician Type: Progress Notes Filed: 12/21/2017 10:11 AM Note Text: Patient presents with: Sinus Problem: sinus pressure and drainage x 2 weeks on augmentin finished 12/11 HPI: Feeling sinus symptoms for the last week. Seen here 3 weeks ago and treated with augmentin for sinusitis. Her children are currently ill also. Positive symptoms: sinus pressure, Earache, Post nasal drainage, Negative symptoms: Nasal Congestion, Fever, Chills, OTC: Nyquil, zyrtec Hx of sinus surgery. MEDICATIONS: Current Outpatient Prescriptions: fluticasone (FLONASE) 50 mcg/actuation nasal spray Use 2 Sprays in each nostril once daily. Rinse mouth after use. cetirizine-pseudoephedrine (ZYRTEC-D) 5-120 mg per tablet Take 1 tablet by mouth twice daily. No current facility-administered medications for this visit. ALLERGIES: ALLERGIES Allergen Reactions - Soap [Other] Rash Tide laundry deterg. especially per pt. - Food Extracts GI Upset, Other: See Comments ANCHOVIES Causes fevers, I can't move - Morphine Mental Status Change - Garvin Hives Pt has a reaction to oranges if consumed in large amounts. VITALS: BP 110/72 Pulse 76 Temp 36.2 ?C (97.1 ?F) (Tympanic) Resp 14 Wt 77.1 kg (170 lb) BMI 28.29 kg/m2 PHYSICAL EXAM: GEN: mildly ill appearing. HEENT: PERRL, EOMI, conjunctiva clear Ears: canals clear, TMs without erythema, bulge, or effusion Sinuses: non-tender frontal sinus, non-tender maxillary sinuses Throat: moist mucous membranes, mild erythema, no exudate Neck: supple, no thyromegaly, no lymphadenopathy HEART: regular rate and rhythm, no murmurs LUNGS: clear to auscultation, no wheezes or crackles, no increased WOB ASSESSMENT/PLAN: 1. Acute recurrent sinusitis, unspecified location - ICD9: 461.9, ICD10: J01.91 - DOXYCYCLINE MONOHYDRATE 100 MG CAPSULE Discussed nasal saline rinse, unfortunately neti pot usually gags her. Upright spray bottle may be better tolerated. Nitesh Hopkins MD CNOV Observed: 12/21/2017 Status: COMPLETED Source: BUSBY 9:00 AM [facility] REPOSIT[facility] Office Visit ([facility]STR) ANGELIKA SHAHID I ([id number]) 1990 F Date Time Provider Department 12/21/17 9:00 AM NITESH HOPKINS [facility] During your visit today, we recorded the following information about you: Temperature Pulse Respiration Blood pressure 97.1 degrees 76/minute 14/minute 110/72 Weight 77.1 kg Nitesh Hopkins MD 12/21/2017 10:11 AM Signed Patient presents with: Sinus Problem: sinus pressure and drainage x 2 weeks on augmentin finished 12/11 HPI: Feeling sinus symptoms for the last week. Seen here 3 weeks ago and treated with augmentin for sinusitis. Her children are currently ill also. Positive symptoms: sinus pressure, Earache, Post nasal drainage, Negative symptoms: Nasal Congestion, Fever, Chills, OTC: Nyquil, zyrtec Hx of sinus surgery. MEDICATIONS: Current Outpatient Prescriptions: fluticasone (FLONASE) 50 mcg/actuation nasal spray Use 2 Sprays in each nostril once daily. Rinse mouth after use. cetirizine-pseudoephedrine (ZYRTEC-D) 5-120 mg per tablet Take 1 tablet by mouth twice daily. No current facility-administered medications for this visit. ALLERGIES: ALLERGIES Allergen Reactions - Soap [Other] Rash Tide laundry deterg. especially per pt. - Food Extracts GI Upset, Other: See Comments ANCHOVIES Causes fevers, ANDquot;I can't moveANDquot; - Morphine Mental Status Change - Garvin Hives Pt has a reaction to oranges if consumed in large amounts. VITALS: BP 110/72 Pulse 76 Temp 36.2 ?C (97.1 ?F) (Tympanic) Resp 14 Wt 77.1 kg (170 lb) BMI 28.29 kg/m2 PHYSICAL EXAM: GEN: mildly ill appearing. HEENT: PERRL, EOMI, conjunctiva clear Ears: canals clear, TMs without erythema, bulge, or effusion Sinuses: non-tender frontal sinus, non-tender maxillary sinuses Throat: moist mucous membranes, mild erythema, no exudate Neck: supple, no thyromegaly, no lymphadenopathy HEART: regular rate and rhythm, no murmurs LUNGS: clear to auscultation, no wheezes or crackles, no increased WOB ASSESSMENT/PLAN: 1. Acute recurrent sinusitis, unspecified location - ICD9: 461.9, ICD10: J01.91 - DOXYCYCLINE MONOHYDRATE 100 MG CAPSULE Discussed nasal saline rinse, unfortunately neti pot usually gags her. Upright spray bottle may be better tolerated. MD Nitesh Jackson MD 12/21/2017 10:41 AM Signed Addended by: NITESH HOPKINS MD on: 12/21/2017 10:41 AM Modules accepted: Orders Referring Provider: SELF [200] Allergies As of Date: 12/21/2017 Noted Allergy Reaction soap [Other] 07/31/2005 2 - Rash Comments: Tide laundry deterg. especially per pt. FOOD EXTRACTS 04/26/2014 8 - GI Upset 14 - Other: See Comments Comments: ANCHOVIES Causes fevers, I can't move MORPHINE 01/08/2016 1 - Mental Status Change ORANGE 01/23/2010 4 - Hives Comments: Pt has a reaction to oranges if consumed in large amounts. Date Reviewed: 12/21/2017 Reviewed by: Cynthia Logan Ma - Fully Assessed Reason for Visit: Sinus Problem [99] Cmt: sinus pressure and drainage x 2 weeks on augmentin finished 12/11 Reason For Visit History Recorded Primary Visit Diagnosis:Acute recurrent sinusitis, unspecified location [J01.91] Order(s):doxycycline monohydrate (MONODOX) 100 mg capsuleTake 1 capsule by mouth twice daily for 10 days.Disp: 20 capsuleRfl: 0 Prescriptions as of 12/21/2017 Sig: FLUTICASONE 50 MCG/ACTUATION * Use 2 Sprays in each nostril * CETIRIZINE 5 MG-PSEUDOEPHEDRI* Take 1 tablet by mouth twice * DOXYCYCLINE MONOHYDRATE 100 M* Take 1 capsule by mouth twice* Problem List As Of Date 12/21/2017 Noted Resolved Supervision of Normal First [Z34.00] INVALID FOR*01/23/2010 Other and unspecified coagulation defects [D68.*INVALID FOR*12/12/2015 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 Strepto*INVALID FOR*01/23/2010 Hirsutism [L68.0] INVALID FOR*04/06/2012 Supervision of other high-risk [O09.8*INVALID FOR*01/03/2011 IUD surveillance [Z30.431] INVALID FOR*04/06/2012 Oligomenorrhea [N91.5] INVALID FOR*12/12/2015 Chronic pelvic pain in female [R10.2, G89.29] INVALID FOR* Endometriosis [N80.9] INVALID FOR* 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] INVALID FOR* Fibromyalgia [M79.7] INVALID FOR* Prescriptions ordered this encounter Disp Refills Start End DOXYCYCLINE MONOHYDRATE 100 MG CAPSU* 14 c* 0 12/21/2017 12/21/2017 Route: ORAL Sig: Take 1 capsule by mouth twice daily for 10 days. DOXYCYCLINE MONOHYDRATE 100 MG CAPSU* 20 c* 0 12/21/2017 12/31/2017 Route: ORAL Sig: Take 1 capsule by mouth twice daily for 10 days. Medications Discontinued During This Encounter betamethasone dipropionate (DIPROSON* 30 g 0 03/24/2017 12/21/2017 Route: TOPICAL Sig: Apply 1 application to affected area twice daily. Disc: Reason for discontinue is not on file. predniSONE (DELTASONE) 10 mg tablet 30 t* 0 03/30/2017 12/21/2017 Sig: TAKE BY MOUTH (4) TABS FOR (3) DAYS THEN (3) TABS FOR (3) DAYS THEN (2) TABS FOR (3) DAYS THEN (1) TAB FOR (3) DAYS Disc: Reason for discontinue is not on file. doxycycline monohydrate (MONODOX) 10* 14 c* 0 12/21/2017 12/21/2017 Route: ORAL Sig: Take 1 capsule by mouth twice daily for 10 days. Disc: Reason for discontinue is not on file. Encounter Status:Closed by NITESH HOPKINS MD on 12/21/17 PROGRESS Observed: 12/01/2017 Status: COMPLETED Source: BUSBY 10:46 AM [facility] REPOSITORY HNO ID: [id number] Author: Tashi Mo) Danette Service: (none) Author Type: Physician Chief Merchandising Officer Type: Progress Notes Filed: 12/01/2017 10:59 AM Note Text: This note was created using Lore. Subjective HPI Pt presents with sinus congestion x 1 week worse the past three days. She had a sinus surgery 1 year ago and her sonus infections had gotten better however she has had a couple other sinus infections. Mild sough. She does have a sore throat from the drainage. She uses claritin and flonase as needed. They weren't really helping her symptoms. No fever. No nvd or abdominal pain. Review of Systems Constitutional: Negative. HENT: Positive for congestion, ear pain, sinus pain, sinus pressure and sore throat. Negative for sneezing. Eyes: Negative. Respiratory: Negative. Cardiovascular: Negative. Gastrointestinal: Negative. Endocrine: Negative. Genitourinary: Negative. Musculoskeletal: Negative. Allergic/Immunologic: Negative. Neurological: Negative. Hematological: Negative. Psychiatric/Behavioral: Negative. All other systems reviewed and are negative. PAST MEDICAL HISTORY Diagnosis Date - Endometriosis 2016 stage 3 - Other and unspecified ovarian cyst Ovarian cyst - PMH - PAST MEDICAL HISTORY OF ELEVATED PTT Current Outpatient Prescriptions: fluticasone (FLONASE) 50 mcg/actuation nasal spray Use 2 Sprays in each nostril once daily. Rinse mouth after use. Disp: 1 Bottle Rfl: 11 cetirizine-pseudoephedrine (ZYRTEC-D) 5-120 mg per tablet Take 1 tablet by mouth twice daily. Disp: 30 tablet Rfl: 0 amoxicillin-clavulanic acid (AUGMENTIN) 875-125 mg per tablet Take 1 tablet by mouth twice daily for 10 days. Disp: 20 tablet Rfl: 0 predniSONE (DELTASONE) 10 mg tablet TAKE BY MOUTH (4) TABS FOR (3) DAYS THEN (3) TABS FOR (3) DAYS THEN (2) TABS FOR (3) DAYS THEN (1) TAB FOR (3) DAYS Disp: 30 tablet Rfl: 0 betamethasone dipropionate (DIPROSONE) 0.05 % cream Apply 1 application to affected area twice daily. Disp: 30 g Rfl: 0 No current facility-administered medications for this visit. 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 - REMOVAL OF TONSILS,<12 Y/O Tonsillectomy FAMILY HISTORY Problem Relation Age of Onset - Breast Cancer Maternal Aunt - Breast Cancer Mother - Heart Father 55 mild [place] - Heart Maternal Uncle - Alcohol/Drug Maternal Grandfather ETOH - Alcohol/Drug Paternal Grandfather ETOH - Alcohol/Drug Paternal Grandmother ETOH - Diabetes Maternal Aunt - Diabetes Maternal Aunt - COPD Father - Stroke Paternal Uncle - Hypertension Father - Multiple Sclerosis Maternal Aunt Social History Substance Use Topics - Smoking status: Former Smoker Years: 1.00 Types: Cigarettes Quit date: 05/05/2006 - Smokeless tobacco: Never Used - Alcohol use No Objective BP 118/72 Pulse 68 Temp 36.4 ?C (97.5 ?F) Resp 18 Wt 78.8 kg (173 lb 12.8 oz) BMI 28.92 kg/m2 Physical Exam Constitutional: She is oriented to person, place, and time. She appears well-developed and well-nourished. HENT: Head: Normocephalic and atraumatic. Right Ear: External ear normal. Left Ear: External ear normal. Mouth/Throat: Oropharynx is clear and moist. Eyes: EOM are normal. Pupils are equal, round, and reactive to light. Neck: Normal range of motion. Cardiovascular: Normal rate and regular rhythm. Pulmonary/Chest: Effort normal and breath sounds normal. She has no wheezes. Lymphadenopathy: She has no cervical adenopathy. Neurological: She is alert and oriented to person, place, and time. Skin: Skin is warm and dry. No rash noted. Psychiatric: She has a normal mood and affect. Her behavior is normal. Nursing note and vitals reviewed. Assessment and Plan ASSESSMENT/PLAN: 1. Acute recurrent maxillary sinusitis - ICD9: 461.0, ICD10: J01.01 - Will begin treatment with Augmentin 875 mg PO BID for 10 days - Supportive care with plenty of fluids, rest, and analgesia prn. - Follow up in one week if symptoms persist or worsen. Tashi Willis PA-C CNOV Observed: 12/01/2017 Status: COMPLETED Source: BUSBY 10:30 AM [facility] RE[facility]IT[facility] Office Visit (WSTR) ANGELIKA SHAHID I ([id number]) 1990 F Date Time Provider Department 12/01/17 10:30 AM TASHI WILLIS) WSTR During your visit today, we recorded the following information about you: Temperature Pulse Respiration Blood pressure 97.5 degrees 68/minute 18/minute 118/72 Weight 78.8 kg Tashi Willis PA-C 12/01/2017 10:59 AM Signed This note was created using Memeoirsriter. Subjective HPI Pt presents with sinus congestion x 1 week worse the past three days. She had a sinus surgery 1 year ago and her sonus infections had gotten better however she has had a couple other sinus infections. Mild sough. She does have a sore throat from the drainage. She uses claritin and flonase as needed. They weren't really helping her symptoms. No fever. No nvd or abdominal pain. Review of Systems Constitutional: Negative. HENT: Positive for congestion, ear pain, sinus pain, sinus pressure and sore throat. Negative for sneezing. Eyes: Negative. Respiratory: Negative. Cardiovascular: Negative. Gastrointestinal: Negative. Endocrine: Negative. Genitourinary: Negative. Musculoskeletal: Negative. Allergic/Immunologic: Negative. Neurological: Negative. Hematological: Negative. Psychiatric/Behavioral: Negative. All other systems reviewed and are negative. PAST MEDICAL HISTORY Diagnosis Date - Endometriosis 2016 stage 3 - Other and unspecified ovarian cyst Ovarian cyst - PMH - PAST MEDICAL HISTORY OF ELEVATED PTT Current Outpatient Prescriptions: fluticasone (FLONASE) 50 mcg/actuation nasal spray Use 2 Sprays in each nostril once daily. Rinse mouth after use. Disp: 1 Bottle Rfl: 11 cetirizine-pseudoephedrine (ZYRTEC-D) 5-120 mg per tablet Take 1 tablet by mouth twice daily. Disp: 30 tablet Rfl: 0 amoxicillin-clavulanic acid (AUGMENTIN) 875-125 mg per tablet Take 1 tablet by mouth twice daily for 10 days. Disp: 20 tablet Rfl: 0 predniSONE (DELTASONE) 10 mg tablet TAKE BY MOUTH (4) TABS FOR (3) DAYS THEN (3) TABS FOR (3) DAYS THEN (2) TABS FOR (3) DAYS THEN (1) TAB FOR (3) DAYS Disp: 30 tablet Rfl: 0 betamethasone dipropionate (DIPROSONE) 0.05 % cream Apply 1 application to affected area twice daily. Disp: 30 g Rfl: 0 No current facility-administered medications for this visit. 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 - REMOVAL OF TONSILS,ANDlt;10 Y/O Tonsillectomy FAMILY HISTORY Problem Relation Age of Onset - Breast Cancer Maternal Aunt - Breast Cancer Mother - Heart Father 55 mild [place] - Heart Maternal Uncle - Alcohol/Drug Maternal Grandfather ETOH - Alcohol/Drug Paternal Grandfather ETOH - Alcohol/Drug Paternal Grandmother ETOH - Diabetes Maternal Aunt - Diabetes Maternal Aunt - COPD Father - Stroke Paternal Uncle - Hypertension Father - Multiple Sclerosis Maternal Aunt Social History Substance Use Topics - Smoking status: Former Smoker Years: 1.00 Types: Cigarettes Quit date: 05/05/2006 - Smokeless tobacco: Never Used - Alcohol use No Objective BP 118/72 Pulse 68 Temp 36.4 ?C (97.5 ?F) Resp 18 Wt 78.8 kg (173 lb 12.8 oz) BMI 28.92 kg/m2 Physical Exam Constitutional: She is oriented to person, place, and time. She appears well-developed and well-nourished. HENT: Head: Normocephalic and atraumatic. Right Ear: External ear normal. Left Ear: External ear normal. Mouth/Throat: Oropharynx is clear and moist. Eyes: EOM are normal. Pupils are equal, round, and reactive to light. Neck: Normal range of motion. Cardiovascular: Normal rate and regular rhythm. Pulmonary/Chest: Effort normal and breath sounds normal. She has no wheezes. Lymphadenopathy: She has no cervical adenopathy. Neurological: She is alert and oriented to person, place, and time. Skin: Skin is warm and dry. No rash noted. Psychiatric: She has a normal mood and affect. Her behavior is normal. Nursing note and vitals reviewed. Assessment and Plan ASSESSMENT/PLAN: 1. Acute recurrent maxillary sinusitis - ICD9: 461.0, ICD10: J01.01 - Will begin treatment with Augmentin 875 mg PO BID for 10 days - Supportive care with plenty of fluids, rest, and analgesia prn. - Follow up in one week if symptoms persist or worsen. Tashi Willis PA-C Referring Provider: SELF [200] Allergies As of Date: 12/01/2017 Noted Allergy Reaction soap [Other] 07/31/2005 2 - Rash Comments: Tide laundry deterg. especially per pt. FOOD EXTRACTS 04/26/2014 8 - GI Upset 14 - Other: See Comments Comments: ANCHOVIES Causes fevers, I can't move MORPHINE 01/08/2016 1 - Mental Status Change ORANGE 01/23/2010 4 - Hives Comments: Pt has a reaction to oranges if consumed in large amounts. Date Reviewed: 12/01/2017 Reviewed by: Alla Perez LPN - Fully Assessed Reason for Visit: sinus pressure and congestion, sore throat [Other] Cmt: has had symptoms for about 1 week but last 2-3 days it is much worse Primary Visit Diagnosis:Acute recurrent maxillary sinusitis [J01.01] Order(s):amoxicillin-clavulanic acid (AUGMENTIN) 875-125 mg per tabletTake 1 tablet by mouth twice daily for 10 days.Disp: 20 tabletRfl: 0 Prescriptions as of 12/01/2017 Sig: FLUTICASONE 50 MCG/ACTUATION * Use 2 Sprays in each nostril * CETIRIZINE 5 MG-PSEUDOEPHEDRI* Take 1 tablet by mouth twice * AMOXICILLIN 875 MG-POTASSIUM * Take 1 tablet by mouth twice * PREDNISONE 10 MG TABLET TAKE BY MOUTH (4) TABS FOR (3* BETAMETHASONE DIPROPIONATE 0.* Apply 1 application to affect* Problem List As Of Date 12/01/2017 Noted Resolved Supervision of Normal First [Z34.00] INVALID FOR*01/23/2010 Other and unspecified coagulation defects [D68.*INVALID FOR*12/12/2015 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 Strepto*INVALID FOR*01/23/2010 Hirsutism [L68.0] INVALID FOR*04/06/2012 Supervision of other high-risk [O09.8*INVALID FOR*01/03/2011 IUD surveillance [Z30.431] INVALID FOR*04/06/2012 Oligomenorrhea [N91.5] INVALID FOR*12/12/2015 Chronic pelvic pain in female [R10.2, G89.29] INVALID FOR* Endometriosis [N80.9] INVALID FOR* 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] INVALID FOR* Fibromyalgia [M79.7] INVALID FOR* Prescriptions ordered this encounter Disp Refills Start End AMOXICILLIN 875 MG-POTASSIUM CLAVULA* 20 t* 0 12/01/2017 12/11/2017 Route: ORAL Sig: Take 1 tablet by mouth twice daily for 10 days. Encounter Status:Closed by TASHI WILLIS PA-C on 12/01/17 ALLERGIES ALLERGIES DATE TYPE / CODE NAME / CODE REACTION SEVERITY SOURCE 10/25/2018 Drug morphine/F0060 Other [place] Allergy/[id number](S 37957(RXNORM) [facility] Rep[facility] 01/08/2016 DRUG MORPHINE Mental Chg [place] INGREDI/[id number](S [facility] Main NOMED CT) [place] Repository 04/26/2014 DRUG FOOD EXTRACTS GI UPSET [place] INGREDI/[id number](S [facility] NOMED CT) [place] Repository 01/23/2010 DRUG ORANGE HIVES [place] INGREDI/[id number]([facility] NOMED CT) [place] Repository 07/31/2005 Miscellaneous OTHER RASH [place] Allergy/[id number]([facility] NOMED CT) [place] Repository ENCOUNTERS ENCOUNTERS ADMIT/DISCHARGE ACCOUNT ADMITTING ENCOUNTER LOCATION SOURCE NUMBER CLASS 10/25/2018/10/25/20 [id number] [place] ing:ED Repository 10/19/2018/10/20/20 [id number] Ambulatory [address] Repository 08/23/2018/08/23/20 [id number] Emergency [place] ing:ED Repository 08/23/2018/08/24/20 [id number] Ambulatory [address] Repository 07/24/2018/07/24/[id number] Repository 07/23/2018/07/26/20 [id number] Ambulatory [address] Repository 05/25/2018/05/25/20 [id number] Emergency [place] ing:ED Repository 04/05/2018/04/06/20 [id number] Ambulatory [address] Repository 01/14/2018/01/15/20 [id number] Ambulatory [address] Repository 12/21/2017/12/21/19 [id number] Ambulatory [address] Repository 12/01/2017/12/02/19 [id number] Ambulatory [address] Repository PAYERS PAYERS ENCOUNTER GUARANTOR PAYER SUBSCRIBER SOURCE 10/25/2018 ANGELIKA Lucasoster [id number] Insurance:ANTHEMPolic SCHOONOVERDOB: [facility] BENITO MARR, y Number: [id number] [address]Kcx: [id number] Repository chun Date:4332-17-77NP () [address], [place] [address]SN: 10/25/2018 Secondary ANGELIKA [place] Insurance:CARESOURCEP SCHOONOVERDOB: [facility] olicy Number: [id number] Hospital [id number] Repository Date:2018-10-25[address]ATTN: [place] [address]AT: 10/25/2018 Tertiary NOT GIVENUNK [place] Insurance:SELF PAY [facility] Number: Effective Repository Date:2018-10-25 08/23/2018 [facility] LUIS MANUEL Be ZEHRA [id number] Insurance:ANTHEMPolic SCHOONOVERDOB: [facility] BENITO MARR, y Number: [id number] County General Hospital [address]Gqr: [id number] Repository chun Date:5920-21-27VR () [id number] [place] [address]SM: 08/23/2018 Secondary ANGELIKA [place] Insurance:CARESOURCEP ZEHRA IDOB: [facility] Number: [id number] Hospital [id number] Repository Date:2018-08-23[address]ATTN: [place] [address]NY: 08/23/2018 Tertiary NOT GIVENUNK [place] Insurance:SELF PAY [facility] Number: Effective Repository Date:2018-08-23 05/25/2018 [facility] [place] Be Zehra [id number] Insurance:CARESOURCEP Zehra IDOB: [facility] shannon DARLINGicy Number: [id number] County General Hospital [address]Ede: [id number] Repository Date:2018-05-25P O ) [address]ATTN: [place] [address]UA: 05/25/2018 Secondary NOT GIVENUNK [place] Insurance:SELF PAY [facility] Number: Effective Repository Date:2018-05-25
== END 2018-10-25 16:01 | disposition home or self-care (01) ==
PROVIDERS: Emergency Provider Emergency Medicine; Family Provider Student in an Organized Health Care Education/Training Program; PCP Student in an Organized Health Care Education/Training Program
DX: R07.89 Other chest pain (principal); R42 Dizziness and giddiness
CPT/HCPCS: 71046; 80048; 84484; 85025; 85379; 93005; 99285

== ENCOUNTER 2021-08-16 09:30 | Emergency (ER) | payer BC, MEDICAID, SELFPAY ==
[2021-08-16 09:32] VITALS: BP 120/90; PULSE 73; RESP 16; TEMP 36.6; O2SAT 97; BMI 28.5
--- NOTE | 2021-08-16 09:44 | CT_ITS ---
STUDY: CT ABDOMEN AND PELVIS WITH CONTRAST REASON FOR EXAM: Female, 31 years old. Abd pain -- IV PO Contrast. History of appendiceal cancer. RADIATION DOSAGE (If Supplied By Facility): CTDIvol = ( 17.01 ) mGy, DLP = ( 931.88 ) mGycm TECHNIQUE: Transaxial images were obtained from the dome of the diaphragm to the symphysis pubis with oral contrast. Oral and amp; IV Gastrografin and amp; 100mL Isovue-300 was administered. Sagittal and coronal images were reconstructed. Individualized dose optimization techniques were used for this CT. COMPARISON: Comparison is made with prior examination dated 10/16/2015. FINDINGS: The visualized lung bases are unremarkable. The visualized portions of the heart are within normal limits. There is decreased attenuation of the liver consistent with steatosis. Normal gallbladder and extrahepatic biliary system. Normal spleen. Normal pancreas. Normal bilateral adrenal glands. Normal right kidney. Normal left kidney. There is a small hiatal hernia. Normal small intestine. Normal colon. The appendix is visualized and appears normal. Normal abdominal aorta. Normal inferior vena cava. Normal retroperitoneum. Normal urinary bladder. There is absence of the uterus consistent with a prior hysterectomy. There is evidence of a 4.1 cm x 2 cm septated complex cystic nodule in the right ovary. Correlation with outside is recommended. Small amount of free fluid is seen in the cul-de-sac. Normal abdominal wall. Normal osseous structures. CT/Abdomen/Pelvis WITH Contrast IMPRESSION: 4.1 cm x 2 signed a septated complex cystic nodule in the right ovary as described. Correlation with ultrasound is recommended. Small amount of free fluid in the cul-de-sac. Electronically Signed: Trever Segal MD at 11:56 EDT , Service support ,
--- NOTE | 2021-08-16 09:45 | EDS_ITS ---
HPI History of Present Illness Chief Complaint: Female C/O Informant: patient Onset/Context/Timing Onset: Yesterday Current Severity: Moderate Maximum Severity: Moderate Narrative Narrative: Patient presents secondary to lower abdominal pain. She had a hysterectomy and appendectomy in May. She states she was doing some stretching last night and felt a sharp sudden pain in her lower mid abdomen. She had significant pain to that area since that time. She called her surgeon's office this morning who advised she needed to be seen in the emergency room. She rep orts no problems with urination or bowel movement. No fever or chills. PFSH PFSH Medical History Endometriosis Fibromyalgia Home Medications tramadol [Ultram] 50 mg PO Q8H PRN #14 tab 08/16/21 [Rx Last Taken Unknown] Allergy/AdvReac Type Severity Reaction Status Date / Time morphine AdvReac Mild Other Verified 10/25/18 14:14 ANCHOVIES Allergy Other Uncoded 08/16/21 09:32 SARDINES Allergy Other Uncoded 08/16/21 09:32 Surgical History History of hysterectomy Hx of appendectomy Social History Smoking Status: Never smoker ROS ROS ED Constitutional Constitutional ED: Denies chills or fever(s) Eyes Eyes: Denies change in vision ENT ENT ED: Denies sore throat Cardiovascular Cardiovascular: Denies chest pain Respiratory/Chest Respiratory/Chest: Denies cough or dyspnea Gastrointestinal Gastrointestinal: Reports abdominal pain; Denies diarrhea, nausea or vomiting Genitourinary Genitourinary ED: Denies dysuria Musculoskeletal Musculoskeletal: Denies back pain Integumentary Denies rash Neurologic Neurologic: Denies headache(s) or weakness Allergic/Immunologic Allergic/Immunologic ED: Denies urticaria EXAM Physical Exam Const Vital Signs: 08/16/21 09:32 Temperature 97.8 F Temperature Source Temporal Pulse Rate 73 Respiratory Rate 16 Blood Pressure 120/90 H Blood Pressure Mean 100 Pulse Ox 97 Oxygen Delivery Method Room Air Positive well nourished and well developed General Appearance ED: well developed HEENT Reports normocephalic and head/scalp atraumatic Eyes PERRL and EOMs intact bilaterally Neck supple Chest Wall inspection of chest normal and palpation of chest normal Resp normal respiratory effort and clear to auscultation bilaterally Cardio regular rate and regular rhythm GI GI Narrative: No palpable hernia. Palpation: soft and tender suprapubic Extremity normal to inspection Neuro oriented x3 and no sensory deficits noted Sensorium / Orientation: alert Motor Exam: strength 5/5 throughout Psych mental status grossly normal Skin no rashes or lesions noted MDM MDM MDM Narrative Medical decision making narrative: Patient was given Toradol here for pain. Blood work and CT scan of the abdomen and pelvis obtained. Lab Data Attestation: I reviewed the patient's lab results. Labs: Laboratory Results - last 24 hr 08/16/21 08/16/21 08/16/21 09:50 10:00 10:00 WBC 6.1 RBC 4.38 Hgb 12.8 Hct 40.1 MCV 91.6 MCH 29.2 MCHC 31.9 L RDW Std Deviation 42.2 RDW Coeff of Liliana 12.5 Plt Count 286 MPV 9.2 Immature Gran % (Auto) 0.200 Neut % (Auto) 74.2 H Lymph % (Auto) 17.3 L [place] % (Auto) 6.9 Eos % (Auto) 1.2 Baso % (Auto) 0.2 Absolute Neuts (auto) 4.5 Absolute Lymphs (auto) 1.05 Nucleated RBC % 0 Sodium 138 Potassium 3.9 Chloride 107 Carbon Dioxide 27.0 Anion Gap 4 L BUN 20 H Creatinine 0.90 Estim Creat Clear Calc 80.00 Est GFR (MDRD) Af Amer 93 Est GFR (MDRD) Non-Af 77 BUN/Creatinine Ratio 22.3 H Glucose 96 Calcium 9.0 Urine Color Yellow Urine Clarity Clear Urine pH 5.0 Ur Specific [place] 1.020 Urine Protein Negative Urine Glucose (UA) Normal Urine Ketones Negative Urine Occult Blood Negative Urine Nitrite Negative Urine Bilirubin Negative Urine Urobilinogen Normal Ur Leukocyte Esterase 25 H Urine RBC 0 SEEN Urine WBC 0 SEEN Ur Squamous Epith Cells 0-5 SEEN Urine Bacteria RARE Urine Mucus 0 SEEN Radiography Diagnostic Testing: Radiology Impression Abdomen/Pelvis CT 08/16/21 09:44 IMPRESSION: 4.1 cm x 2 signed a septated complex cystic nodule in the right ovary as described. Correlation with ultrasound is recommended. Small amount of free fluid in the cul-de-sac. Electronically Signed: Trever Segal MD at 11:56 EDT , Service support , Transvaginal US 08/16/21 12:14 IMPRESSION: Status post hysterectomy. 2.2 cm x 2.1 signed by 2.1 summary a solid nodule within the right ovary of increased echotexture. A dermoid should BE ruled out. Adjacent to this, there is a 2.3 cm x 1.6 cm x 1.5 cm cyst. Electronically Signed: Trever Segal MD at 13:17 EDT , Service support , Treatment and Re-Evaluation Comments:: CT scan reveals a complex cystic nodule in the right ovary. Ultrasound is recommended. Pelvic ultrasound was performed that reveals evidence of a dermoid cyst adjacent to another cyst. Test results discussed with the patient. I do not know if the cysts are actually causing her pain. Patient had surgery 2 months ago and developed sudden pain when stretching. She may have pulled the scar tissue. She will follow up with her [facility] [employer] specialist at the [facility] [place]. She will be written for Ultram to help with pain. Discharge Plan Triage Chief Complaint: Female C/O ED Provider: Mariposa Harris Dx/Rx/DC Orders Clinical Impression: Pelvic pain, Ovarian cyst Instructions: ED Ovarian Cyst Prescriptions: New tramadol [Ultram] 50 mg tablet 50 mg PO Q8H PRN (Reason: pain) Qty: 14 RF: 0 Primary Care Provider: Devyn Cavanaugh Referrals: Devyn Cavanaugh DO [Primary Care Provider] - Activity Restrictions/Additional Instructions: As discussed, follow-up with your [facility] at [facility] [place]. Disposition Disposition: Home, Self Care
[2021-08-16] MEDS: Ketorolac 30 MG/ML Syringe IV (09:58)
[2021-08-16 10:05] LABS: Mucous, Urine 0 SEEN /hpf (<or=2+); Red Blood Cells-Urine 0 SEEN /hpf (0-5); White Blood Cells 0 SEEN /hpf (0-5)
[2021-08-16 10:07] LABS: Absolute Lymphocyte Count 1.05 X10^3/uL (0.83-4.51); Absolute Neutrophil Count 4.5 X10^3/uL (2.0-7.7); Basophil# 0.01 X10^3/uL; Basophil% 0.2 % (0-1); Eosinophil# 0.07 X10^3/uL; Eosinophils% 1.2 % (0-5); Hematocrit 40.1 % (37-47); Hemoglobin 12.8 g/dL (12.0-15.0); Lymphocyte # 1.05 X10^3/ul (0.83-4.51); Lymphocyte % 17.3 % (19-41); Mean Corp Hgb Conc 31.9 g/dL (32-36); Mean Corpuscular Hgb 29.2 pg (27.0-32.0); Mean Corpuscular Volume 91.6 fL (81-99); Mean Platelet Vol. 9.2 fl (6.2-12.0); Monocyte# 0.42 X10^3/uL; Monocyte% 6.9 % (0-10); NRBC Flagged by Analyzer 0 % (0-5); Neutrophil # 4.51 X10^3/uL (2.7-7.7); Neutrophil % 74.2 % (47-70); Platelet Count 286 K/mm3 (150-450); RBC Distribution Width CV 12.5 % (11.6-14.6); RBC Distribution Width SD 42.2 fl (35.1-43.9); Red Blood Count 4.38 M/mm3 (4.2-5.4); White Blood Count 6.1 K/mm3 (4.4-11.0)
[2021-08-16 10:07] LABS: Color, Urine Yellow (Yellow); Glucose, Dipstick Normal (Normal); Ketone-Dipstick Negative (Negative); Leukocyte Esterase-Dipstick 25 /ul (Negative); Nitrite-Dipstick Negative (Negative); Occult Blood-Urine Negative /ul (Negative); Protein-Dipstick Negative (Negative); Urine Bilirubin Dipstick Negative (Negative); Urine Clarity Clear (Clear); Urine Urobilinogen Normal (Normal)
[2021-08-16 10:12] LABS: Squamous Epithelial Cells - UA 0-5 SEEN /hpf (5-10)
[2021-08-16 10:13] LABS: Bacteria RARE /hpf (None Seen)
[2021-08-16 10:21] LABS: Anion Gap 4 (5-15); BUN 20 mg/dL (7-18); BUN/Creat Ratio 22.3 RATIO (10-20); Chloride 107 mmol/L (98-107); EST Glomerular Filtration Rate 77 mL/min (>60); Est Glom Filt Rate - Afr Amer 93 mL/min (>60); Glucose 96 mg/dL (74-106); Potassium 3.9 mmol/L (3.5-5.1); Sodium Level 138 mmol/L (136-145)
--- NOTE | 2021-08-16 12:14 | US_ITS ---
STUDY: ULTRASOUND OF THE FEMALE PELVIS - COMPLETE REASON FOR EXAM: Female, 31 years old. Pain -- ovarian cyst on CT LMP: The patient is status post hysterectomy. TECHNIQUE: Transabdominal and Transvaginal TECHNICAL QUALITY: Adequate. COMPARISON: Comparison is made with prior CT scan of the abdomen and pelvis done earlier in the day. FINDINGS: The patient is status post hysterectomy. The right ovary is visualized. The right ovary measures 4.4 cm x 3 cm x 3.1 cm. There is a 2.2 cm x 2.1 cm x 2.1 cm solid nodule within the right ovary. It is of mild increased echotexture. A dermoid should BE ruled out. Adjacent to this, there is a 2.3 cm x 1.6 x 1.5 cm cyst. There is no visualized right adnexal mass or complex lesion. There is normal arterial and normal venous vascularity. The left ovary is not visualized. There is no fluid in the cul-de-sac. The pre void volume of the bladder was 419 ml. US/Transvaginal Non- IMPRESSION: Status post hysterectomy. 2.2 cm x 2.1 signed by 2.1 summary a solid nodule within the right ovary of increased echotexture. A dermoid should BE ruled out. Adjacent to this, there is a 2.3 cm x 1.6 cm x 1.5 cm cyst. Electronically Signed: Trever Segal MD at 13:17 EDT , Service support ,
[2021-08-16 14:12] VITALS: BP 116/78; PULSE 81; RESP 14; O2SAT 97
--- NOTE | 2021-08-16 14:12 | ED.RN ---
THIS NURSE REVIEWED D/C INSTRUCTIONS WITH PT. PT VERBALIZED UNDERSTANDING OF INSTRUCTIONS. IV D/C. IV CATHETER INTACT. PT TOLERATED WELL. PT DENIES FURTHER NEEDS OR QUESTIONS AT THIS MAGAN
== END 2021-08-16 14:13 | disposition home or self-care (01) ==
PROVIDERS: Emergency Provider Emergency Medicine; PCP Student in an Organized Health Care Education/Training Program
DX: N83.201 Unspecified ovarian cyst, right side (principal); R10.2 Pelvic and perineal pain; M79.7 Fibromyalgia; Z90.710 Acquired absence of both cervix and uterus
CPT/HCPCS: 74177; 76830; 80048; 81001; 85025; 96374; 99282; Q9967; A4216

== ENCOUNTER 2022-06-18 10:17 | Emergency (ER) | payer BC, MEDICAID, SELFPAY ==
[2022-06-18 10:18] VITALS: BP 119/94; PULSE 80; RESP 16; TEMP 36.3; O2SAT 98; BMI 27.4
--- NOTE | 2022-06-18 10:50 | US_ITS ---
STUDY: ABDOMINAL ULTRASOUND - RIGHT UPPER QUADRANT REASON FOR VISIT: Female, 31 years old right upper quadrant pain. TECHNIQUE: Ultrasound evaluation of the right upper quadrant was performed with real-time and static mcknight-scale imaging. TECHNICAL QUALITY: Adequate. COMPARISON: None. FINDINGS: Liver: The liver measures 14.8 cm. There is increased echogenicity consistent with mild degree of fatty infiltration. The bile ducts are within normal limits. There is hepatic color flow. The direction of portal flow is hepatopetal. There is no demonstrated mass lesion. Gallbladder: Normal distended gallbladder. The gallbladder wall measures 2.0 mm. There is a negative sonographic Messina''s sign. There is no pericholecystic fluid. There are no gallstones. Common Bile Duct (C.B.D.): The common bile duct measures 2.9 mm. Pancreas: Normal size of the head, body and tail of the pancreas. There is increased echogenicity of the pancreas. There is no demonstrated pancreatic mass or cyst. Right Kidney: Normal size of the right kidney. The right kidney measures 10.5 cm x 4.7 cm x 4.2 cm. Normal renal cortex. The right cortex measures 1.1 cm. There is no demonstrated renal mass or cyst. There is no right hydronephrosis. US/Gallbladder IMPRESSION: Mild degree of fatty infiltration of the liver. Electronically Signed: Trever Segal MD at 12:42 EDT ,
--- NOTE | 2022-06-18 10:55 | ED.VIS.GI ---
HPI HPI - GI History of Present Illness Chief Complaint: Abd Pain Informant: patient Narrative Narrative: Patient is a 31-year-old female with history of fibromyalgia, endometriosis and almost stage 2 appendiceal cancer presenting from home for epigastric abdominal pain, nausea and diarrhea. Patient states she is been having nausea and diarrhea for the past 2 weeks. She notes her stools have been joaquin/pale-colored and either small in caliber or watery. She denies any blood in her stool. She had nausea but no vomiting. She also notes that the past 2 days she had worsening pain in her epigastric region that radiates to her right upper quadrant. She has never had pain like this before. Has had a prior hysterectomy and appendectomy. Has taken Tylenol for pain. Has had increased sweating but denies any fever or chills. No chest pain or difficulty breathing. No rash or skin changes. She spoke to her primary care doctor, Dr. Cavanaugh, who recommend she come to the emergency room yesterday but patient states she did not have the time so she came today. She notes that she is concerned that she may be has new cancer in her body. PFSH [facility] Medical History Endometriosis Fibromyalgia Home Medications tramadol 50 mg tablet (Ultram) 50 mg PO Q8H PRN pain #14 tabs 08/16/21 [Rx Last Taken Unknown] Allergy/AdvReac Type Severity Reaction Status Date / Time morphine AdvReac Mild Other Verified 06/18/22 10:21 ANCHOVIES Allergy Other Uncoded 06/18/22 10:21 SARDINES Allergy Other Uncoded 06/18/22 10:21 Surgical History History of hysterectomy Hx of appendectomy Social History Smoking Status: Never smoker ROS ROS ED Constitutional Constitutional ED: Reports sweats; Denies chills or fever(s) ENT ENT ED: Denies rhinorrhea or sore throat Cardiovascular Cardiovascular: Denies chest pain Respiratory/Chest Respiratory/Chest: Denies cough Gastrointestinal Gastrointestinal: Reports abdominal pain, diarrhea and nausea; Denies constipation, melena or vomiting Genitourinary Genitourinary ED: Denies dysuria or hematuria Musculoskeletal Musculoskeletal: Denies arthralgias or myalgias Integumentary Denies rash Neurologic Neurologic: Denies headache(s) or weakness Psychiatric Psychiatric: Denies anxiety EXAM Physical Exam Const Vital Signs: 06/18/22 10:18 06/18/22 13:52 Temperature 97.4 F L Temperature Source Temporal Pulse Rate 80 72 Respiratory Rate 16 15 Blood Pressure 119/94 H 115/74 Blood Pressure Mean 102 87 Pulse Ox 98 98 Oxygen Delivery Method Room Air Room Air Positive well nourished and well developed General Appearance ED: well developed and NAD; Negative for pallor HEENT Reports moist mucous membranes normocephalic and atraumatic Eyes PERRL and EOMs intact bilaterally Neck supple Resp normal respiratory effort and clear to auscultation bilaterally Cardio regular rate, regular rhythm and no murmurs GI non-distended and no masses GI Narrative: Negative Messina sign Auscultation: normoactive bowel sounds Palpation: soft and tender RLQ and RUQ Back/Spine no CVA tenderness Neuro moves all extremities and no sensory deficits noted Motor Exam: Negative for general weakness Psych mental status grossly normal and thought process normal Skin no wounds General Skin Exam: Negative for jaundice or pallor Lesions: no lesions Rashes: no rashes MDM MDM MDM Narrative Medical decision making narrative: Patient evaluated for right abdominal pain, epigastric abdominal pain, nausea and diarrhea. Patient appears nontoxic and in no acute distress. Her vital signs are normal. Patient states she does not want any pain medicine she is on to make sure nothing was wrong with her. Abdominal exam is benign. She is mildly tender in her right upper quadrant as well as count on the right flank. Creatinine is minimally elevated at 1.14 however the remainder of her CMP is normal. Her CBC is normal. Right upper quadrant ultrasound shows a mild degree of fatty liver infiltration but otherwise normal. Even though she is reporting some joaquin or light-colored stools there is no findings concerning for an acute obstructive process or liver disease. Urinalysis normal. Given that she also had pain in her right lower quadrant CT of the abdomen pelvis obtained which was negative for any acute process. There was a small follicle of the left ovary and a small amount of free fluid in the pelvis which is nonspecific. This does not consistent with any concerning process given his present symptoms are more related to diarrhea. Patient is offered IV fluids as well as Toradol or nausea for symptom control. Patient declines all stating that she drinks plenty of water and Toradol upsets her stomach and she does not feel that nauseous. Patient be discharged to follow-up with her primary care doctor. She is counseled that her creatinine is mildly elevated at 1.14. She states she thinks has been told that in the past. She is encouraged to increase her fluid intake. Of note she does not have any proteinuria or ketones in her urine today. Lab Data Attestation: I reviewed the patient's lab results. Labs: Laboratory Results - last 24 hr 06/18/22 06/18/22 06/18/22 11:00 11:00 11:00 WBC 4.9 RBC 4.57 Hgb 13.6 Hct 41.5 MCV 90.8 MCH 29.8 MCHC 32.8 RDW Std Deviation 40.3 RDW Coeff of Liliana 12.2 Plt Count 305 MPV 9.1 Immature Gran % (Auto) 0.400 Neut % (Auto) 66.4 Lymph % (Auto) 25.1 [place] % (Auto) 6.9 Eos % (Auto) 0.8 Baso % (Auto) 0.4 Absolute Neuts (auto) 3.3 Absolute Lymphs (auto) 1.23 Nucleated RBC % 0 Sodium 139 Potassium 3.9 Chloride 107 Carbon Dioxide 25.0 Anion Gap 7 BUN 14 Creatinine 1.14 H Estim Creat Clear Calc 63.16 Est GFR (MDRD) Af Amer 70 Est GFR (MDRD) Non-Af 58 L BUN/Creatinine Ratio 12.3 Glucose 95 Calcium 9.0 Total Bilirubin 0.30 Direct Bilirubin 0.08 AST 18 ALT 27 Alkaline Phosphatase 46 Total Protein 7.0 Albumin 3.7 Globulin 3.3 Lipase 59 L Urine Color Yellow Urine Clarity Sl. Cloudy Urine pH 6.0 Ur Specific [place] 1.020 Urine Protein Negative Urine Glucose (UA) Normal Urine Ketones Negative Urine Occult Blood Negative Urine Nitrite Negative Urine Bilirubin Negative Urine Urobilinogen Normal Ur Leukocyte Esterase Negative Urine RBC 0 SEEN Urine WBC 0 SEEN Ur Squamous Epith Cells 0-5 SEEN Urine Bacteria 0 SEEN Urine Mucus 0 SEEN Urine Test Negative Radiography Diagnostic Testing: Clinical Impression(s) from Imaging Studies Gallbladder Ultrasound 06/18/22 10:50 IMPRESSION: Mild degree of fatty infiltration of the liver. Electronically Signed: Trever Segal MD at 12:42 EDT , Abdomen/Pelvis CT 06/18/22 13:18 IMPRESSION: Small follicle in the left ovary. Small amount of free fluid in the pelvis. Fatty infiltration of the liver. Electronically Signed: Trever Segal MD at 14:02 EDT , Discharge Plan Triage Chief Complaint: Abd Pain ED Provider: Margareth Swenson Dx/Rx/DC Orders Clinical Impression: Abdominal pain, Elevated serum creatinine, Diarrhea Instructions: ED Abdominal Pain Unkn Cause Fem, ED Diarrhea, Unknown Cause Prescriptions: No Action tramadol [Ultram] 50 mg tablet 50 mg PO Q8H PRN (Reason: pain) Qty: 14 0RF Primary Care Provider: Devyn Cavanaugh Referrals: Devyn Cavanaugh DO [Primary Care Provider] - Activity Restrictions/Additional Instructions: Your serum creatinine which is a marker for kidney function was minimally elevated at 1.14. Please follow-up with your primary care doctor for this. We are work-up otherwise is largely normal. Disposition Disposition: Home, Self Care
[2022-06-18 11:02] LABS: Bacteria 0 SEEN /hpf (None Seen); Mucous, Urine 0 SEEN /hpf (<or=2+); Red Blood Cells-Urine 0 SEEN /hpf (0-5); White Blood Cells 0 SEEN /hpf (0-5)
[2022-06-18 11:05] LABS: Color, Urine Yellow (Yellow); Glucose, Dipstick Normal (Normal); Ketone-Dipstick Negative (Negative); Leukocyte Esterase-Dipstick Negative /ul (Negative); Nitrite-Dipstick Negative (Negative); Occult Blood-Urine Negative /ul (Negative); Protein-Dipstick Negative (Negative); Urine Bilirubin Dipstick Negative (Negative); Urine Clarity Sl. Cloudy (Clear); Urine Urobilinogen Normal (Normal)
[2022-06-18 11:11] LABS: Squamous Epithelial Cells - UA 0-5 SEEN /hpf (5-10)
[2022-06-18 11:12] LABS: Internal QC Validated? YES +Cl - CLEAR BKGD; Pregnancy, Urine Negative Negative
[2022-06-18 11:22] LABS: Absolute Lymphocyte Count 1.23 X10^3/uL (0.83-4.51); Absolute Neutrophil Count 3.3 X10^3/uL (2.0-7.7); Basophil# 0.02 X10^3/uL; Basophil% 0.4 % (0-1); Eosinophil# 0.04 X10^3/uL; Eosinophils% 0.8 % (0-5); Hematocrit 41.5 % (37-47); Hemoglobin 13.6 g/dL (12.0-15.0); Lymphocyte # 1.23 X10^3/ul (0.83-4.51); Lymphocyte % 25.1 % (19-41); Mean Corp Hgb Conc 32.8 g/dL (32-36); Mean Corpuscular Hgb 29.8 pg (27.0-32.0); Mean Corpuscular Volume 90.8 fL (81-99); Mean Platelet Vol. 9.1 fl (6.2-12.0); Monocyte# 0.34 X10^3/uL; Monocyte% 6.9 % (0-10); NRBC Flagged by Analyzer 0 % (0-5); Neutrophil # 3.26 X10^3/uL (2.7-7.7); Neutrophil % 66.4 % (47-70); Platelet Count 305 K/mm3 (150-450); RBC Distribution Width CV 12.2 % (11.6-14.6); RBC Distribution Width SD 40.3 fl (35.1-43.9); Red Blood Count 4.57 M/mm3 (4.2-5.4); White Blood Count 4.9 K/mm3 (4.4-11.0)
[2022-06-18 11:38] LABS: AST(SGOT) 18 U/L (15-37); Alanine Aminotransfer ALT/SGPT 27 U/L (13-56); Albumin, Serum 3.7 g/dL (3.2-5.0); Alkaline Phosphatase 46 U/L (45-117); Anion Gap 7 (5-15); BUN 14 mg/dL (7-18); BUN/Creat Ratio 12.3 RATIO (10-20); Bilirubin, Direct 0.08 mg/dL (0.00-0.30); Chloride 107 mmol/L (98-107); Creatinine, Serum 1.14 mg/dL (0.55-1.02); EST Glomerular Filtration Rate 58 mL/min (>60); Est Glom Filt Rate - Afr Amer 70 mL/min (>60); Estimated Creatinine Clearance 63.16 ml/min; Globulin 3.3 g/dL (2.2-4.2); Glucose 95 mg/dL (74-106); Lipase 59 U/L (73-393); Potassium 3.9 mmol/L (3.5-5.1); Sodium Level 139 mmol/L (136-145)
--- NOTE | 2022-06-18 13:18 | CT_ITS ---
STUDY: CT ABDOMEN AND PELVIS WITH CONTRAST REASON FOR EXAM: Female, 31 years old. Right sided abd pain RADIATION DOSAGE (If Supplied By Facility): CTDIvol = ( 13.90 ) mGy, DLP = ( 765.95 ) mGycm TECHNIQUE: Transaxial images were obtained from the dome of the diaphragm to the symphysis pubis without oral contrast. IV 100mL Isovue-300 was administered. Sagittal and coronal images were reconstructed. Individualized dose optimization techniques were used for this CT. COMPARISON: Comparison is made with prior study dated 08/16/2021. FINDINGS: The visualized lung bases are unremarkable. The visualized portions of the heart are within normal limits. There is decreased attenuation of the liver consistent with steatosis. Normal gallbladder and extrahepatic biliary system. Normal spleen. Normal pancreas. Normal bilateral adrenal glands. Normal right kidney. Normal left kidney. There is a small hiatal hernia. Normal small intestine. Normal colon. There are surgical clips in the region of the appendix consistent with a prior appendectomy. Normal abdominal aorta. Normal inferior vena cava. Normal retroperitoneum. Normal urinary bladder. There is absence of the uterus consistent with a prior hysterectomy. Small amount of free fluid is seen in the cul-de-sac. Small follicles seen in the left ovary. Normal abdominal wall. Normal osseous structures. CT/Abdomen/Pelvis W IV Cont ONLY IMPRESSION: Small follicle in the left ovary. Small amount of free fluid in the pelvis. Fatty infiltration of the liver. Electronically Signed: Trever Segal MD at 14:02 EDT ,
[2022-06-18 13:52] VITALS: BP 115/74; PULSE 72; RESP 15; O2SAT 98
[2022-06-18 15:03] VITALS: BP 101/87; PULSE 72; RESP 15; O2SAT 98
== END 2022-06-18 15:04 | disposition home or self-care (01) ==
PROVIDERS: Emergency Provider Emergency Medicine; PCP Student in an Organized Health Care Education/Training Program; Visit Provider Emergency Medicine
DX: R10.31 Right lower quadrant pain (principal); R10.13 Epigastric pain; R19.7 Diarrhea, unspecified; K76.0 Fatty (change of) liver, not elsewhere classified; R79.89 Other specified abnormal findings of blood chemistry; R11.0 Nausea; M79.7 Fibromyalgia; Z90.710 Acquired absence of both cervix and uterus; Z90.49 Acquired absence of other specified parts of digestive tract
CPT/HCPCS: 74177; 76705; 80048; 80076; 81001; 81025; 83690; 85025; 99283; Q9967; A4216

== ENCOUNTER 2022-08-14 16:29 | Emergency (ER) | payer BC, MEDICAID, SELFPAY ==
[2022-08-14 16:30] VITALS: BP 119/88; PULSE 80; RESP 16; TEMP 36.6; O2SAT 98; BMI 28.3
[2022-08-14 17:36] VITALS: BP 124/86; PULSE 73; RESP 16; O2SAT 98
--- NOTE | 2022-08-14 18:04 | EDS_ITS ---
HPI History of Present Illness Chief Complaint: Dizziness Informant: patient Onset/Context/Timing Onset: Today Context: Sudden Onset Timing: Continuous Quality: Spinning, shaking Location: Generalized Worsened by: Nothing Relieved by: Drinking soda Narrative Narrative: Patient presents with dizziness that began today. Patient states it began rather suddenly. Patient states it felt like a spinning sensation. Patient states she has a family history of diabetes and thought that her sugar may be getting low so she drank some soda. Patient states it improved after this but has not completely resolved. Patient states she still feels some shakiness and spinning sensation. Patient states that it feels generalized. Patient states nothing makes it worse. Patient admits to some blurred vision with this. Patient admits to nausea but denies any vomiting. Patient admits to some epigastric abdominal pain. Patient denies any chest pain or shortness of breath. [facility] Medical History Endometriosis Fibromyalgia History of malignant neoplasm of appendix Home Medications Lactobacil.acidophilus-Bifido.animalis 5 billion cell sprinkle capsule (Probiotic) 1 cap PO DAILY 08/14/22 [History Last Taken Unknown] multivitamin 1 tab PO DAILY 08/14/22 [History Last Taken Unknown] Allergy/AdvReac Type Severity Reaction Status Date / Time Fish Containing Products Allergy NEEDS Verified 08/14/22 16:33 FOLLOW-UP morphine AdvReac Mild Other Verified 08/14/22 16:33 Surgical History History of hysterectomy Hx of appendectomy Hx of removal of ovary Social History Smoking Status: Never smoker ROS ROS ED Constitutional Constitutional ED: Denies chills or fever(s) Eyes Eyes: Reports blurry vision; Denies change in vision ENT ENT ED: Denies rhinorrhea or sore throat Cardiovascular Cardiovascular: Denies chest pain or palpitations Respiratory/Chest Respiratory/Chest: Denies cough or dyspnea Gastrointestinal Gastrointestinal: Reports abdominal pain and nausea; Denies vomiting Genitourinary Genitourinary ED: Denies dysuria or hematuria Musculoskeletal Musculoskeletal: Denies back pain or neck pain Integumentary Denies abscess or rash Neurologic Neurologic: Denies headache(s) or weakness Allergic/Immunologic Allergic/Immunologic ED: Denies mouth swelling or urticaria EXAM Physical Exam Const Vital Signs: 08/14/22 16:30 08/14/22 17:36 08/14/22 19:15 Temperature 97.8 F Temperature Source Temporal Pulse Rate 80 73 72 Respiratory Rate 16 16 19 H Blood Pressure 119/88 H 124/86 H 118/75 Blood Pressure Mean 98 98 89 Pulse Ox 98 98 99 Oxygen Delivery Method Room Air Room Air Room Air Positive well nourished and well developed General Appearance ED: well developed and NAD HEENT Reports moist mucous membranes Neck supple and no JVD Resp normal respiratory effort and clear to auscultation bilaterally Cardio regular rate, regular rhythm and no murmurs GI normal to inspection, nondistended, normoactive bowel sounds and non-tender Palpation: soft Extremity normal to inspection General Extremety ED: Negative for edema or tenderness General Extremity: Negative for edema Neuro oriented x3, CN's II-XII intact bilaterally and no sensory deficits noted Sensorium / Orientation: alert Motor Exam: strength 5/5 throughout Psych mental status grossly normal Skin no rashes or lesions noted MDM MDM MDM Narrative Medical decision making narrative: EKG was obtained. On my interpretation, it showed a normal sinus rhythm with a rate of 64. UT interval, QRS interval, and QTc intervals were all normal. Monon was normal. There are no acute ST or T wave changes. Patient was given IV fluids and meclizine. CBC was within normal limits. Comprehensive metabolic profile was within normal limits. High-sensitivity troponin was normal. Urinalysis does not show any evidence of urinary tract infection. PA and lateral chest x-ray was obtained. There are 2 views. On my interpretation, lung meza are clear. There is normal cardiac silhouette. Bony thorax is normal. There is no acute process noted. Radiologist also interpreted the x- ray and agrees. Patient is feeling better on reevaluation. Patient was instructed to drink plenty of fluids. Patient was instructed to follow-up with her primary care physician in 3 to 5 days. Patient understood and was agreeable with the plan. All questions were answered. Lab Data Attestation: I reviewed the patient's lab results. Labs: Laboratory Results - last 24 hr 08/14/22 08/14/22 08/14/22 18:25 18:25 18:25 WBC 6.5 RBC 4.57 Hgb 13.8 Hct 42.1 MCV 92.1 MCH 30.2 MCHC 32.8 RDW Std Deviation 40.3 RDW Coeff of Liliana 11.9 Plt Count 316 MPV 9.1 Immature Gran % (Auto) 0.300 Neut % (Auto) 71.4 H Lymph % (Auto) 21.3 Sabine % (Auto) 6.0 Eos % (Auto) 0.5 Baso % (Auto) 0.5 Absolute Neuts (auto) 4.6 Absolute Lymphs (auto) 1.38 Nucleated RBC % 0 Sodium 139 Potassium 3.7 Chloride 105 Carbon Dioxide 27.0 Anion Gap 7 BUN 24 H Creatinine 0.96 Estim Creat Clear Calc 74.30 Est GFR (MDRD) Af Amer 85 Est GFR (MDRD) Non-Af 70 BUN/Creatinine Ratio 24.9 H Glucose 97 Calcium 9.2 Total Bilirubin 0.50 AST 15 ALT 24 Alkaline Phosphatase 42 L Troponin I High Sens 3 Total Protein 7.2 Albumin 3.9 Globulin 3.3 Albumin/Globulin Ratio 1.2 Urine Color Straw Urine Clarity Clear Urine pH 6.0 Ur Specific [place] 1.015 Urine Protein Negative Urine Glucose (UA) Normal Urine Ketones Negative Urine Occult Blood Negative Urine Nitrite Negative Urine Bilirubin Negative Urine Urobilinogen Normal Ur Leukocyte Esterase Negative Urine RBC 0 SEEN Urine WBC 0 SEEN Ur Squamous Epith Cells 0 SEEN Urine Bacteria RARE Urine Mucus 0 SEEN Radiography Chest X-Ray - ED: 2 View, Read by ED Physician, Read by Radiologist, Normal and No Acute Disease Diagnostic Testing: Clinical Impression(s) from Imaging Studies Chest X-Ray 08/14/22 18:53 IMPRESSION: Normal x-ray examination of the chest. Electronically Signed: Winston Mcgee MD at 19:52 EDT , EKG Initial EKG: Attestation: I personally reviewed and interpreted this EKG as follows: Interpretation: Sinus Rhythm (64) and No Acute Injury Pattern Prior EKG tracings: available for review Prior: Unchanged (10/25/2018) Discharge Plan Triage Chief Complaint: Dizziness ED Provider: Javier Ortiz Dx/Rx/DC Orders Clinical Impression: Dizziness Instructions: ED Dizziness, Uncertain Cause Prescriptions: No Action multivitamin Tablet 1 tab PO DAILY Probiotic 5 billion cell Capsule, Sprinkle 1 cap PO DAILY Primary Care Provider: Devyn Cavanaugh Referrals: Devyn Cavanaugh DO [Primary Care Provider] - 3-5 Days Disposition Disposition: Home, Self Care
--- NOTE | 2022-08-14 18:08 | EKG12_ITS ---
Test Reason : DIZZINESS Blood Pressure : / mmHG Vent. Rate : 064 BPM Atrial Rate : 064 BPM P-R Int : 116 ms QRS Dur : 088 ms QT Int : 394 ms P-R-T Axes : 038 -05 003 degrees QTc Int : 406 ms Normal sinus rhythm Normal ECG Confirmed by ROSELYN LAKE MD ([id number]), commercial production editor DHRUV RUELAS ([id number]) on 08/16/2022 9:33:55 AM Referred By: Confirmed By:ROSELYN LAKE MD
[2022-08-14] MEDS: 0.9% Normal Saline 1,000 ML 1000 ML IV (18:15)
[2022-08-14 18:34] LABS: Mucous, Urine 0 SEEN /hpf (<or=2+); Red Blood Cells-Urine 0 SEEN /hpf (0-5); Squamous Epithelial Cells - UA 0 SEEN /hpf (5-10); White Blood Cells 0 SEEN /hpf (0-5)
[2022-08-14 18:44] LABS: Absolute Lymphocyte Count 1.38 X10^3/uL (0.83-4.51); Absolute Neutrophil Count 4.6 X10^3/uL (2.0-7.7); Basophil# 0.03 X10^3/uL; Basophil% 0.5 % (0-1); Eosinophil# 0.03 X10^3/uL; Eosinophils% 0.5 % (0-5); Hematocrit 42.1 % (37-47); Hemoglobin 13.8 g/dL (12.0-15.0); Lymphocyte # 1.38 X10^3/ul (0.83-4.51); Lymphocyte % 21.3 % (19-41); Mean Corp Hgb Conc 32.8 g/dL (32-36); Mean Corpuscular Hgb 30.2 pg (27.0-32.0); Mean Corpuscular Volume 92.1 fL (81-99); Mean Platelet Vol. 9.1 fl (6.2-12.0); Monocyte# 0.39 X10^3/uL; NRBC Flagged by Analyzer 0 % (0-5); Neutrophil # 4.64 X10^3/uL (2.7-7.7); Neutrophil % 71.4 % (47-70); Platelet Count 316 K/mm3 (150-450); RBC Distribution Width CV 11.9 % (11.6-14.6); RBC Distribution Width SD 40.3 fl (35.1-43.9); Red Blood Count 4.57 M/mm3 (4.2-5.4); White Blood Count 6.5 K/mm3 (4.4-11.0)
[2022-08-14 18:46] LABS: Color, Urine Straw (Yellow); Glucose, Dipstick Normal (Normal); Ketone-Dipstick Negative (Negative); Leukocyte Esterase-Dipstick Negative /ul (Negative); Nitrite-Dipstick Negative (Negative); Occult Blood-Urine Negative /ul (Negative); Protein-Dipstick Negative (Negative); Specific Gravity, Urine 1.015 (1.002-1.030); Urine Bilirubin Dipstick Negative (Negative); Urine Clarity Clear (Clear); Urine Urobilinogen Normal (Normal)
--- NOTE | 2022-08-14 18:53 | RAD_ITS ---
STUDY: X-RAY CHEST REASON FOR EXAM: Female, 32 years old. Dizziness TECHNIQUE: PA and lateral COMPARISON: None. FINDINGS: The lungs are clear and expanded. There is no demonstrated pleural abnormality. Normal size heart. Normal mediastinum and mitch. Normal visualized pulmonary arteries. Normal visualized aortic arch and descending thoracic aorta. Normal visualized thoracic spine. Normal visualized ribs, clavicles, and shoulders. There is no demonstrated abnormality of the visualized soft tissue structures of the upper abdomen. RAD/Chest PA and Lateral IMPRESSION: Normal x-ray examination of the chest. Electronically Signed: Winston Mcgee MD at 19:52 EDT ,
[2022-08-14 18:57] LABS: Bacteria RARE /hpf (None Seen)
[2022-08-14 19:05] LABS: ALB/GLOB Ratio 1.2 RATIO (0.9-2.4); AST(SGOT) 15 U/L (15-37); Alanine Aminotransfer ALT/SGPT 24 U/L (13-56); Albumin, Serum 3.9 g/dL (3.2-5.0); Alkaline Phosphatase 42 U/L (45-117); Anion Gap 7 (5-15); BUN 24 mg/dL (7-18); BUN/Creat Ratio 24.9 RATIO (10-20); Calcium,Total 9.2 mg/dL (8.5-10.1); Chloride 105 mmol/L (98-107); Creatinine, Serum 0.96 mg/dL (0.55-1.02); EST Glomerular Filtration Rate 70 mL/min (>60); Est Glom Filt Rate - Afr Amer 85 mL/min (>60); Globulin 3.3 g/dL (2.2-4.2); Glucose 97 mg/dL (74-106); Potassium 3.7 mmol/L (3.5-5.1); Protein, Total 7.2 g/dL (6.4-8.2); Sodium Level 139 mmol/L (136-145); Troponin-I HS 3 pg/mL (3.0-54.0)
[2022-08-14] MEDS: Meclizine HCl 25 MG Tablet PO (19:10)
[2022-08-14 19:15] VITALS: BP 118/75; PULSE 72; RESP 19; O2SAT 99
[2022-08-14 21:00] VITALS: BP 115/78; PULSE 88; RESP 16; TEMP 36.9; O2SAT 99
== END 2022-08-14 21:01 | disposition home or self-care (01) ==
PROVIDERS: Emergency Provider Emergency Medicine; PCP Student in an Organized Health Care Education/Training Program; Visit Provider Emergency Medicine
DX: R42 Dizziness and giddiness (principal); R11.0 Nausea; H53.8 Other visual disturbances; R10.13 Epigastric pain
CPT/HCPCS: 71046; 80053; 81001; 84484; 85025; 87428; 93005; 96360; 99284; J7030

== ENCOUNTER → 2023-01-21 | Outpatient (CLI) | payer BC, MEDICAID, SELFPAY ==
--- NOTE | 2023-01-21 13:10 | NEURO_ITS ---
NCS and/or EMG Patient Report Ordering Doctor: García Nunez DATE OF SERVICE: 01/21/23 Angelika presents for electrodiagnostic testing of the upper limbs. She reports numbness and tingling in both hands. Electrodiagnostic findings: Median motor nerve demonstrates normal distal latency, amplitude and conduction velocity bilaterally. Normal ulnar motor response bilaterally. Normal median and ulnar F waves. Sensory responses are within normal limits. On needle EMG, all muscles tested in the upper limbs ham wed no evidence of denervation with normal motor unit action potentials. Electrodiagnostic assessment: This a normal electrodiagnostic study of the upper limb. There is no electrodiagnostic evidence for peripheral neuropathy, including carpal tunnel or cubital tunnel syndrome. There is no electrodiagnostic evidence for cervical radiculopathy
== END | disposition home or self-care (01) ==
LOC: PSN 09:09
PROVIDERS: PCP Student in an Organized Health Care Education/Training Program; Referring Provider Orthopaedic Surgery; Visit Provider Orthopaedic Surgery
DX: G56.03 Carpal tunnel syndrome, bilateral upper limbs (principal)
CPT/HCPCS: 95886; 95913

== ENCOUNTER 2023-03-27 09:04 | Outpatient (RCR) | payer BC, MEDICAID, SELFPAY ==
--- NOTE | 2023-03-30 14:56 | HP.OTFCE_ITS ---
Floor (Occasional 1-33% of Day): 20# Floor (Frequent 34-66% of Day): NA Floor (Constant 67-100% of Day): NA Floor PDL: Light Knee (Occasional 1-33% of Day): 20# Knee (Frequent 34-66% of Day): NA Knee (Constant 67-100% of Day): NA Knee PDL: Light Waist (Occasional 1-33% of Day): 20# Waist (Frequent 34-66% of Day): NA Waist (Constant 67-100% of Day): NA Waist PDL: Light Shoulder (Occasional 1-33% of Day): NA Shoulder (Frequent 34-66% of Day): NA Shoulder (Constant 67-100% of Day): NA Shoulder PDL: No Ability Overhead (Occasional 1-33% of Day): NA Overhead (Frequent 34-66% of Day): NA Overhead (Constant 67-100% of Day): NA Overhead PDL: No Ability Comments: 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 NO ABILITY TO LIFT AT SHOULDER/OVERHEAD LIFTS Bending: Occasional Ability (1-33% of day) Comments: with external support Squatting: Occasional Ability (1-33% of day) Comments: with external support Kneeling: No Ablility (0% of day) Reaching out: Occasional Ability (1-33% of day) Comments: while sitting Reaching up: No Ablility (0% of day) Sitting: Frequent Ability (34-66% of day) Walking: Occasional Ability (1-33% of day) Standing: Occasional Ability (1-33% of day) Duration Sedentary Sedentary Light Light Light Medium Medium Medium Heavy Very Heavy Heavy Occasional (0-33% of day) Frequent (34-66% of day) Constant (67-100% of day) 10 # Negligible Negligible 15 # 8 # Negligible 20 # 10# Negli. 35 # 18 # 7 # 50 # 25 # 10 # 75 # 100 # >100 # 38 # 50 # >50 # 15 # 20 # >20 # Weight:: 83.007 kg Hand Dominance: right Medical History Including Restrictions: pt states she struggled with joint pain and stiffens as a child. pt states she has struggled with a number of health issues from broken leg, scoliosis and remote past allergy of the metal dayana in her leg and having it removed. Pt states she has had pain, weakness and joint stiffness for year. She states she use to mtg. but with increase in pain and symptoms. pt states she has had two fall due to her weakness. pt states she currently is taking. RA is [place]. Pt states has been working with her to find a medication to mtg. her symptoms. Currently on meloxicam, methotrexate, folic acid. pt states she has been on this medication for two months with not change in symptoms. pt states she also was told she has bursitis in bilateral shoulders. pt states she currently is not on a lift restriction. pt states she does not attempt some exercise as she tolerates. Diagnoses: Inflammatory arthritis dx 2021. Fibromyalgia dx in 2020. Positive LEONIDAS dx in 2021. Multiple stiff Joints Dx 2021. Multiple joint pain Dx 2021. RA dx 2021. 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 Achy joints. pain in feet and hands. shaking when pain level increases. weakness. decrease functional mobility. decrease ROM Pain: pt states pain now is 9/10 Pt states she takes Meloxicam. [place] pain score 21/78. Interpretation: ? minimum pain score: 0 (would not be seen in a person with true pain). ? maximum pain score: 78. ? The higher the pain score the greater the pain. References: Maki Christianson. The [place] Pain Questionnaire: Major properties and scoring methods. Pain. 1975;. 1: 277-299. Marcella Aguilar. The [place] counterpart to [place] Pain Questionnaire. Pain. 1988; 32: 251-255. 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 and she could not perform her job well due to pain and limited mobility. pt states last she worked was 2021. 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 pt was involved with stocking, meal prep and serving/dishes. Pt states she had difficulty with lifting so she resigned from this position. Last day was June 29, 2022. Behavioral: pt emotional about her situation and verbalizes frustration with lack of progress in her mtg. of her dx and symptoms. ADLS: pt states she lives with her and children ( ages 12 & 14). pt lives in split level home with 15 entry steps with two hand rails. Pt states 5 steps with hand rail to get kitchen and living room with master bedroom and bathroom. Pt drives. Pt states she has tub/shower combination (soaking tub) pt states she had glass doors with handrails. Pt states she is IND with bathing and if she is having trouble with getting in or out her will help her. pt states she is IND with dressing. Pt states she does the light cleaning ( and a robotic sweeper) children and will help. Pt states her spouse will do laundry as (5 steps to landing and 5 steps further down to laundry). pt states she does grocery shopping- pt states she does utilize order on line and pickle maker, family assist unloading groceries. Spouse works 8-10 hours shifts ( is available) ROM: lumbar flex painful hips/pelvis WFL. pt demo functional ROM but reports stiffens/ and pain. bilateral shoulder ROM is limited at flexion 90* abduction at 80* pt states they have been that way for a while. Shoulder ROM is limiting. Strength: Micro FET2 for strength indicating in force pounds. right shoulder flexion 11# right 8#. right shoulder extension 10# left 13#. right biceps 9# left 11#. right triceps 14# left 12#. right hip flexion 18# left 14#. right quad 11# left 9#. right hamstring 14# left 13#. pt demo generalized weakness grossly throughout. Right Silk Winding Machine Operator Strength Average: 31.66 Right Silk Winding Machine Operator Strength Percentile: .2% Left Silk Winding Machine Operator Strength Average: 33.33 Left Silk Winding Machine Operator Strength Percentile: 1.7% Right Lateral Pinch Average: 7.33 Right Lateral Pinch Percentile: <10% Left Lateral Pinch Average: 10.00 Left Lateral Pinch Percentile: 10% Right Tripod Pinch Average: 8.00 Right Tripod Pinch Percentile: <10% Left Tripod Pinch Average: 8.00 Left Tripod Pinch Percentile: <10% Comments: pt demo with weakness of bilateral brand development manager/pinch for her age. Sensation: [place] [employer]ofil[employer] sensory testing. right 2.83 all digits interpretation Normal sensation. left 2.83 all digits interpretation Normal sensation Fine Motor: 9 hole peg test. right 22.28 sec. = 10%. left 20.71 sec. = 25% Balance: functional reach test 7. Interpretation: A score of 6 or less indicates a significant. increased risk for falls. A score between 6-10 inches indicates a. moderate risk for falls. Age related norms for the functional reach test: women age 20-40yrs 14.6 +/- 2.2 Bending: pt demo the ability to bend forward 3/3x and 6/10 with external support. heart rate 82 following 84 but reported pain 9/10 in low back pain. pt making facial grimaces the entire task. pt can bend forward on occasional ability with external support. Squatting: pt demo the ability to squat 1x with external support pt reports weakness. pt states she feels weak and pain 9/10. heart rate 69. occasional ability with external support Kneeling: pt refused unable Reaching out/up: pt completed while sitting: reaching out 3/3x, 10/10x and 8/10 rapidly (no change in speed). pain at 8/10. heart rate 86. pt can reach out on on occasional ability with sitting. pt can not raise arms over 90* pt is unbale to reach up Walking: pt ambulated with a slow antalgic gait pattern with limited hip flexion for 300 feet prior to stopping. pt does use wall and furniture ambulating throughout the facility. pt can walk on occasional ability. (may need ad. device to decrease risk of falls) Standing: pt demo standing for 1min at at time with holding counter tops or leaning on counter top shifting her body weight. pt can stand supporting body against counter top/or external support on occasional ability. Sitting: pt sat for 45 min with no apparent express or apparent discomfort. Pt can sit on frequent ability. Climbing Stairs: pt demo the ability to ascend 4 steps leaning heavily railing. pt stopped because she felt she was shaking and backed down the 4 steps vs turning around. pt demo poor safety with stairs. Floor Lift: pt demo the ability to lift 5# + 15# box for a total maximal lift of 20# with poor lifting mechanics. Knee Lift: pt demo the ability to lift 5# + 15# box for a total maximal lift of 20# with poor lifting mechanics. Waist Lift: pt demo the ability to lift 5# + 15# box for a total maximal lift of 20# with poor lifting mechanics. Shoulder Lift: No ability Overhead Lift: unable due to limited motion Carrying: empty box (15#) for 10 feet. Comments: following lifting heart rate 79. pt emotional due to her realization of her weakness and pain. pt reporting pain 9/10 with performance of tasks. pt sharp shooting pain in hands /feet/back.
--- NOTE | 2023-03-30 14:57 | HP.OTFCE.D ---
FCE D/C Summary - Discharge SABINA NEWSOME was seen for a one time visit for an FCE on 03/27/23 and is discharged.
== END 2023-03-27 19:00 | disposition home or self-care (01) ==
LOC: OT 09:04
PROVIDERS: PCP Student in an Organized Health Care Education/Training Program; Referring Provider Nurse Practitioner Family; Visit Provider Nurse Practitioner Family
DX: M19.90 Unspecified osteoarthritis, unspecified site (principal); M79.7 Fibromyalgia; R76.8 Other specified abnormal immunological findings in serum; M25.60 Stiffness of unspecified joint, not elsewhere classified; M25.50 Pain in unspecified joint
CPT/HCPCS: 97750

== ENCOUNTER 2023-08-14 16:34 | Emergency (ER) | payer BC, MEDICAID, SELFPAY ==
[2023-08-14 16:35] VITALS: BP 124/84; PULSE 84; RESP 16; TEMP 36.2; O2SAT 100; BMI 30.9
[2023-08-14 16:48] LABS: Absolute Lymphocyte Count 1.44 X10^3/uL (0.83-4.51); Absolute Neutrophil Count 3.1 X10^3/uL (2.0-7.7); Basophil# 0.03 X10^3/uL; Basophil% 0.6 % (0-1); Eosinophil# 0.09 X10^3/uL; Eosinophils% 1.8 % (0-5); Hemoglobin 13.7 g/dL (12.0-15.0); Lymphocyte # 1.44 X10^3/ul (0.83-4.51); Lymphocyte % 28.7 % (19-41); Mean Corp Hgb Conc 32.6 g/dL (32-36); Mean Corpuscular Hgb 28.8 pg (27.0-32.0); Mean Corpuscular Volume 88.4 fL (81-99); Mean Platelet Vol. 9.1 fl (6.2-12.0); Monocyte# 0.39 X10^3/uL; Monocyte% 7.8 % (0-10); NRBC Flagged by Analyzer 0 % (0-5); Neutrophil # 3.06 X10^3/uL (2.7-7.7); Neutrophil % 60.9 % (47-70); Platelet Count 313 K/mm3 (150-450); RBC Distribution Width CV 11.8 % (11.6-14.6); RBC Distribution Width SD 37.9 fl (35.1-43.9); Red Blood Count 4.75 M/mm3 (4.2-5.4)
[2023-08-14 17:04] LABS: ALB/GLOB Ratio 1.1 RATIO (0.9-2.4); AST(SGOT) 19 U/L (15-37); Alanine Aminotransfer ALT/SGPT 46 U/L (13-56); Albumin, Serum 3.6 g/dL (3.2-5.0); Alkaline Phosphatase 50 U/L (45-117); Anion Gap 4 (5-15); BUN 11 mg/dL (7-18); BUN/Creat Ratio 12.2 RATIO (10-20); Calcium,Total 9.1 mg/dL (8.5-10.1); Chloride 108 mmol/L (98-107); EST Glomerular Filtration Rate 76 mL/min (>60); Est Glom Filt Rate - Afr Amer 92 mL/min (>60); Estimated Creatinine Clearance 78.51 ml/min; Globulin 3.3 g/dL (2.2-4.2); Glucose 122 mg/dL (74-106); Potassium 3.8 mmol/L (3.5-5.1); Protein, Total 6.9 g/dL (6.4-8.2); Sodium Level 139 mmol/L (136-145)
--- NOTE | 2023-08-14 18:08 | EDS_ITS ---
HPI HPI - GI History of Present Illness Chief Complaint: Abd Pain Narrative Narrative: 33-year-old female with diarrhea x2 weeks. She noticed she has some right upper quadrant pain intermittently. No fevers or chills. She does have nausea intermittently. She was seen by her PCP and had stool studies including C. difficile and these were all negative. Patient continued to have diarrhea. She has an appointment with GI distantly. She is concerned she might have something abnormal. She has not had any blood work drawn. PFSH PFSH Medical History Endometriosis Fibromyalgia History of malignant neoplasm of appendix Home Medications Lactobacil.acidophilus-Bifido.animalis 5 billion cell sprinkle capsule (Probiotic) 1 cap PO DAILY 08/14/22 [History Last Taken Unknown] multivitamin 1 tab PO DAILY 08/14/22 [History Last Taken Unknown] ondansetron 4 mg disintegrating tablet 4 mg PO Q8H PRN PRN Nausea #20 tabs 08/14/23 [Rx Last Taken Unknown] Allergy/AdvReac Type Severity Reaction Status Date / Time Fish Containing Products Allergy NEEDS Verified 08/14/23 16:35 FOLLOW-UP morphine AdvReac Mild Other Verified 08/14/23 16:35 Surgical History History of hysterectomy Hx of appendectomy Hx of removal of ovary Social History Smoking Status: Never smoker ROS ROS ED Constitutional Constitutional ED: Denies chills, fever(s) or sweats Eyes Eyes: Denies blurry vision or change in vision ENT ENT ED: Denies ear pain or sore throat Cardiovascular Cardiovascular: Denies chest pain, palpitations or racing heartbeat Respiratory/Chest Respiratory/Chest: Denies cough, dyspnea or sputum Gastrointestinal Gastrointestinal: Reports abdominal pain, diarrhea and nausea; Denies constipation Genitourinary Genitourinary ED: Denies dysuria, hematuria or urinary frequency Musculoskeletal Musculoskeletal: Denies arthralgias, myalgias or neck pain Integumentary Denies abscess, Abrasions or rash Neurologic Neurologic: Denies headache(s), paresthesias or weakness Psychiatric Psychiatric: Denies anxiety, depression, suicidal ideation or suicidal thoughts Endocrine Endocrinology: Denies polydipsia or polyuria EXAM Physical Exam Const Vital Signs: 08/14/23 16:35 Temperature 97.2 F L Temperature Source Temporal Pulse Rate 84 Respiratory Rate 16 Blood Pressure 124/84 H Blood Pressure Mean 97 Pulse Ox 100 Oxygen Delivery Method Room Air Positive well nourished General Appearance ED: Negative for pallor HEENT Reports moist mucous membranes normocephalic and atraumatic Eyes PERRL and EOMs intact bilaterally Neck no lymphadenopathy Resp normal respiratory effort Cardio regular rate and regular rhythm GI non-tender, non-distended and no masses Palpation: soft Neuro CN's II-XII intact bilaterally and moves all extremities Sensorium / Orientation: alert Motor Exam: strength 5/5 throughout Psych mental status grossly normal Skin no wounds General Skin Exam: Negative for jaundice or pallor MDM MDM MDM Narrative Medical decision making narrative: Includes gastritis, colitis, diverticulitis, patient, electrolyte or maladies. Patient already had a viral study for stool and C. difficile and this was all negative. Patient not have any fevers or chills. She has mild nausea and diarrhea. We will obtain a CBC to assess white blood cell count, hemoglobin, platelets. CMP to assess liver function, renal function, electrolytes. Urinalysis to assess for UTI. Ultimately all of her blood work was normal. I counseled her that this would likely run its course. Jaskaran for nausea at home. I recommended that she keep follow-up with her GI doctor. Return precautions were discussed. Impression: 1. Nausea 2. Diarrhea Lab Data Labs: Laboratory Results - last 24 hr 08/14/23 08/14/23 16:41 18:15 WBC 5.0 RBC 4.75 Hgb 13.7 Hct 42.0 MCV 88.4 MCH 28.8 MCHC 32.6 RDW Std Deviation 37.9 RDW Coeff of Liliana 11.8 Plt Count 313 MPV 9.1 Immature Gran % (Auto) 0.200 Neut % (Auto) 60.9 Lymph % (Auto) 28.7 Rock % (Auto) 7.8 Eos % (Auto) 1.8 Baso % (Auto) 0.6 Absolute Neuts (auto) 3.1 Absolute Lymphs (auto) 1.44 Nucleated RBC % 0 Sodium 139 Potassium 3.8 Chloride 108 H Carbon Dioxide 27.0 Anion Gap 4 L BUN 11 Creatinine 0.90 Estim Creat Clear Calc 78.51 Est GFR (MDRD) Af Amer 92 Est GFR (MDRD) Non-Af 76 BUN/Creatinine Ratio 12.2 Glucose 122 H Calcium 9.1 Total Bilirubin 0.30 AST 19 ALT 46 Alkaline Phosphatase 50 Total Protein 6.9 Albumin 3.6 Globulin 3.3 Albumin/Globulin Ratio 1.1 Urine Color Yellow Urine Clarity Clear Urine pH 6.0 Ur Specific [place] 1.025 Urine Protein Negative Urine Glucose (UA) Normal Urine Ketones Negative Urine Occult Blood Negative Urine Nitrite Negative Urine Bilirubin Negative Urine Urobilinogen Normal Ur Leukocyte Esterase Negative Urine RBC 0 SEEN Urine WBC 0-5 SEEN Ur Squamous Epith Cells 0-5 SEEN Urine Bacteria RARE Urine Mucus 0 SEEN Discharge Plan Triage Chief Complaint: Abd Pain ED Provider: Nic Patel Dx/Rx/DC Orders Instructions: ED Abdominal Pain Unkn Cause Fem, ED Diarrhea, Unknown Cause Prescriptions: New ondansetron 4 mg tablet,disintegrating 4 mg PO Q8H PRN PRN (Reason: Nausea) Qty: 20 0RF No Action multivitamin Tablet 1 tab PO DAILY Probiotic 5 billion cell Capsule, Sprinkle 1 cap PO DAILY Primary Care Provider: Devyn Cavanaugh Referrals: Devyn Cavanaugh, [Primary Care Provider] - Disposition Disposition: Home, Self Care
[2023-08-14] MEDS: Ondansetron 4 MG/2 ML Vial IV (18:16)
[2023-08-14 18:21] LABS: Mucous, Urine 0 SEEN /hpf (<or=2+); Red Blood Cells-Urine 0 SEEN /hpf (0-5)
[2023-08-14 18:29] LABS: Color, Urine Yellow (Yellow); Glucose, Dipstick Normal (Normal); Ketone-Dipstick Negative (Negative); Leukocyte Esterase-Dipstick Negative /ul (Negative); Nitrite-Dipstick Negative (Negative); Occult Blood-Urine Negative /ul (Negative); Protein-Dipstick Negative (Negative); Specific Gravity, Urine 1.025 (1.002-1.030); Urine Bilirubin Dipstick Negative (Negative); Urine Clarity Clear (Clear); Urine Urobilinogen Normal (Normal)
[2023-08-14 18:40] LABS: Bacteria RARE /hpf (None Seen); Squamous Epithelial Cells - UA 0-5 SEEN /hpf (5-10); White Blood Cells 0-5 SEEN /hpf (0-5)
== END 2023-08-14 20:04 | disposition home or self-care (01) ==
PROVIDERS: Emergency Provider Student in an Organized Health Care Education/Training Program; PCP Student in an Organized Health Care Education/Training Program; Visit Provider Student in an Organized Health Care Education/Training Program
DX: R19.7 Diarrhea, unspecified (principal); R11.0 Nausea; R10.11 Right upper quadrant pain; M79.7 Fibromyalgia
CPT/HCPCS: 80053; 81001; 85025; 96374; 99283; A4216; J2405

== ENCOUNTER → 2024-01-04 | Outpatient (CLI) | payer BC, MEDICAID, SELFPAY ==
--- NOTE | 2024-01-04 17:40 | CT_ITS ---
STUDY: CT CHEST, ABDOMEN T PELVIS WITH CONTRAST REASON FOR EXAM: Female, 33 years old. 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 Multiplanar coronal and sagittal images were reformatted. Individualized dose optimization techniques were used for this CT. COMPARISON: Comparison made with prior CT scan again and pelvis dated June 18, 2022. FINDINGS: CHEST The lungs are normal. There is no demonstrated pleural abnormality. Normal heart and pericardium. Normal mediastinum. Normal hilar regions. Normal unenhanced pulmonary arteries. Normal aorta arch and descending thoracic aorta. Normal osseous structures. Diffuse fatty infiltration of the liver. ABDOMEN The visualized lung bases are unremarkable. The visualized portions of the heart are within normal limits. Normal liver. Normal gallbladder and extrahepatic biliary system. Normal spleen. Normal pancreas. Normal bilateral adrenal glands. Normal right kidney. Normal left kidney. Normal visualized stomach. Normal small intestine. There are scattered colonic diverticula consistent with diverticulosis. There is non-visualization of the appendix. Normal abdominal aorta. Normal inferior vena cava. Normal retroperitoneum. Normal abdominal wall. Normal osseous structures. PELVIS Normal urinary bladder. The patient is status post hysterectomy. There is no pelvic fluid. There is no pelvic lymphadenopathy or mass lesion. Normal visualized pelvic arteries. CT/CT Chest, Abd, Pel w/Contrast IMPRESSION: Diffuse fatty infiltration of the liver. Status post hysterectomy. Nonvisualization of the appendix. Electronically Signed: Trever Segal MD at 8:29 EST ,
[2024-01-07 19:07] LABS: 5-HIAA, UR 1.1 mg/L (Undefined)
== END | disposition home or self-care (01) ==
LOC: CT 17:35
PROVIDERS: PCP Student in an Organized Health Care Education/Training Program; Referring Provider Internal Medicine Medical Oncology; Visit Provider Internal Medicine Medical Oncology
DX: E34.0 Carcinoid syndrome (principal); D3A.020 Benign carcinoid tumor of the appendix
CPT/HCPCS: 71260; 74177; 83497; Q9967